=== PATIENT | male | born 2000 | race African-American/Black ===

== ENCOUNTER → 2022-11-06 13:05 | Outpatient (REF) | payer MEDICAID, SELFPAY ==
--- NOTE | 2022-11-06 13:11 | CA_ITS ---
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 Normal LV ejection fraction 55-60% with reduced global longitudinal strain 2. Mildly reduced RV systolic function 3. Mild to moderate aortic regurgitation and moderate aortic stenosis with functionally bicuspid aortic valve 4. Normal RV systolic pressure 5. No gross pericardial effusion 6. Descending thoracic aorta was not well visualized on this study Findings Left Ventricle Normal left ventricular size, thickness, and systolic function. The visually estimated ejection fraction is between 55-60%. Spectral Doppler is indicative of a normal filling pattern. prominent accessory papillary muscle with false tendon noted. Peak GLS is -14.2%, which is reduced. Right Ventricle Normal right ventricular cavity size. There is mildly decreased right ventricular systolic function. Atria Both atria are normal in size. There is no evidence of interatrial shunt. Aortic Valve There is moderate aortic valve stenosis. The peak aortic gradient is 28 mmHg.The mean gradient is 16 mmHg. There is mild to moderate aortic valve regurgitation. The raphe between right coronary and noncoronary cusp appears to be fused, functionally bicuspid valve Mitral Valve Normal mitral valve structure and function. There is trace mitral valve regurgitation. There is no mitral valve stenosis. Pulmonic Valve The pulmonic valve is likely normal. There is mild pulmonic valve regurgitation. Tricuspid Valve Normal tricuspid valve structure. There is mild tricuspid valve regurgitation. The right ventricular systolic pressure is normal. The right ventricular systolic pressure is 17 mmHg. Normal right atrial pressure. There is no evidence of pulmonary hypertension. Great Vessels The pulmonary artery was not well visualized. The asc aorta is normal in size. descending thoracic aorta is not well visualized. consider either chest CTA or thoracic MRA to evaluate the arch and the descending thoracic aorta Venous The inferior vena cava was not well visualized. Pericardium/Pleural There is no evidence of pericardial effusion. Prior Study Comparison No prior study available for comparison. Measurements 2D Linear Measurements IVSd: 0.89 0.6-0.9/0.6-1.0 cm LVIDd: 4.75 3.9-5.3/4.2-5.9 cm LVIDd Index: 2.29 2.4-3.2/2.2-3.1 cm/m2 LVIDs: 2.90 2.0-3.6 cm LVPWd: 0.90 0.7-1.1 cm LA Diam: 3.10 2.7-3.8/3.0-4.0 cm LAIDs Index: 1.50 1.5-2.3 cm/m2 LV Mass: 179.32 67-162/88-224 g LV Mass Index: 86.63 43-95/49-115 g/m2 LVOT Diam: 1.80 3.0+(-)1.3 cm 2D Systolic Function EF 4C: 59.60 >55% EF 2C: 56.30 >55% EF BiP: 57.40 >55% Mitral Valve MV Pk E: 1.44 MV PK A: 0.96 MV Decel Time: 382.00 E/A: 1.50 E'Lateral: 8.16 E'Medial: 6.74 E/E' Med: 21.40 E/E' Lat: 17.60 PHT: 112.00 MVA PHT: 1.96 Decel Edmunds: 3.76 Aortic Valve AoV Pk Baltazar: 2.64 AoV Mn Baltazar: 1.89 AoV VTI: 0.66 AoV Pk Grad: 28.00 Aov Mn Grad: 16.00 MAE Cont.VTI: 1.08 AI Pk Baltazar: 4.54 AI Edmunds: 2.89 LVOT LVOT Pk Baltazar: 1.16 LVOT Mn Baltazar: 0.93 LVOT VTI: 0.28 LVOT Pk Grad: 5.00 LVOT Mn Grad: 4.00 LVOT Diam: 1.80 LVOT Area: 2.54 Diastolic Function MV Pk E: 1.44 MV Pk A: 0.96 E/A: 1.50 E'Medial: 6.74 E/E' Med: 21.40 E' Laterial: 8.16 E/E' Lat: 17.60 Tricuspid Valve TR Pk Baltazar: 1.89 TR Pk Grad: 14.00 RA Press: 3.00 RVSP: 17.00 Great Vessels Aorta Sinus of Valsalva: 2.60 2.0-3.5 cm Ao Asc: 2.70 2.1-3.4 cm Pulmonary Valve PV Pk Baltazar: 1.51 Peak PV Grad: 9.00 Updated in Other Vendor System with Status of Final Louie Serrano MD electronically signed on 11/06/2022 3:18:08 PM with status of Final
== END ==
LOC: HO.CARD 13:05
PROVIDERS: PCP Internal Medicine; Visit Provider Internal Medicine
DX: Q25.1 Coarctation of aorta (principal); Q23.1 Congenital insufficiency of aortic valve; Z87.74 Personal history of (corrected) congenital malformations of heart and circulatory system
CPT/HCPCS: 93306; 93356

== ENCOUNTER 2023-03-31 15:31 | Outpatient (REF) | payer MEDICAID, SELFPAY ==
[2023-03-31 16:15] LABS: MANUAL DIFF FLAG NO
[2023-03-31 16:54] LABS: Basophils Percent Auto 0.7 % (0-2); Eosinophils Absolute Auto 0.4 X10*3/uL (0.0-0.4); Eosinophils Percent Auto 8.7 % (0-4); Hematocrit 49.9 % (42.0-52.0); Hemoglobin 16.1 g/dl (14.0-18.0); Imm Gran Abs Auto 0.01 X10*3/uL (0.00-0.03); Imm Gran Pct Auto 0.2 % (0.0-0.4); Lymphocytes Absolute Auto 0.5 X10*3/uL (1.2-4.9); Lymphocytes Percent Auto 11.1 % (20-40); Mean Corpuscular HGB Conc 32.3 g/dl (31.0-36.0); Mean Corpuscular Hemoglobin 25.5 pg (27.0-33.0); Mean Corpuscular Volume 79.1 fL (80.0-98.0); Mean Platelet Volume 11.1 fL (9.4-12.4); Monocytes Absolute Auto 0.3 X10*3/uL (0.1-1.2); Monocytes Percent Auto 6.8 % (2-11); Neutrophils Absolute Auto 3.3 x10*3/uL (2.0-8.3); Neutrophils Percent Auto 72.5 % (45-73); Platelet Count 255 X10*3/uL (160-400); Red Blood Count 6.31 X10*6/uL (4.60-5.80); Red Cell Distribution Width 13.2 % (11.0-16.0); White Blood Count 4.6 X10*3/uL (4.8-10.8)
[2023-03-31 17:01] LABS: Alanine Aminotransferase 16 U/L (0-40); Albumin Level 3.4 g/dL (3.5-5.0); Alkaline Phosphatase 57 U/L (39-117); Anion Gap 8 (12-20); Aspartate Amino Transferase 25 U/L (5-37); Bilirubin Total 0.4 mg/dL (0.0-1.0); Blood Urea Nitrogen 9 mg/dL (9-16); Carbon Dioxide 28 mmol/L (22-29); Chloride 109 mmol/L (96-108); Estimated Glomerular Filt Rate > 60; Glucose Random 120 mg/dL (60-115); Potassium 4.1 mmol/L (3.3-5.1); Sodium 141 mmol/L (135-145); Total Protein 5.3 g/dL (6.5-8.0)
[2023-04-06 13:13] LABS: NT-proBNP <36 pg/mL (<125)
== END 2023-03-31 15:32 | disposition home or self-care (01) ==
LOC: HO.HHCL 15:31
PROVIDERS: Visit Provider Pediatrics
DX: R06.9 Unspecified abnormalities of breathing (principal)
CPT/HCPCS: 36415; 80053; 83880; 85025

== ENCOUNTER 2023-05-29 18:18 | Outpatient (REF) | payer MEDICAID, SELFPAY ==
[2023-05-29 19:03] LABS: Influenza A PCR NEGATIVE (Negative); Influenza B PCR NEGATIVE (Negative); Resp Syncy Virus RNA Qual PCR NEGATIVE (Negative); SARS COV2 PCR INHOUSE NEGATIVE (Negative)
== END 2023-05-29 18:19 | disposition home or self-care (01) ==
LOC: HO.HHCLNP 18:18
PROVIDERS: Visit Provider Registered Nurse
DX: Z11.52 Encounter for screening for COVID-19 (principal); J06.9 Acute upper respiratory infection, unspecified
CPT/HCPCS: 0241U

== ENCOUNTER 2023-10-09 12:15 | Outpatient (REF) | payer MEDICAID, SELFPAY ==
--- NOTE | ~2023-10-09 | XR_ITS ---
EXAMINATION: XR CHEST CLINICAL INFORMATION: Shortness of breath, fever and asthma COMPARISON: 09/29/2018 TECHNIQUE: 2 views of the chest were obtained. FINDINGS: No significant abnormality is noted involving the heart, lungs, mediastinum, bony thorax or soft tissues. XR/XR chest 2V IMPRESSION: Unremarkable examination with no interval change.
== END 2023-10-09 12:16 | disposition home or self-care (01) ==
LOC: HO.HHCX 12:15
PROVIDERS: Visit Provider General Practice
DX: R06.02 Shortness of breath (principal)
CPT/HCPCS: 71046

== ENCOUNTER 2023-10-30 21:44 | Emergency (ER) | payer MEDICAID, SELFPAY ==
--- NOTE | ~2023-10-30 | XR_ITS ---
EXAMINATION: XR CHEST CLINICAL INFORMATION: Shortness of breath. COMPARISON: Chest radiograph 10/09/2023. TECHNIQUE: 2 views of the chest were obtained. FINDINGS: Stable appearance of the cardiomediastinal silhouette with redemonstration of midline sternotomy wires. No focal airspace opacities, pleural effusion or pneumothorax. No acute osseous findings. XR/XR chest 2V IMPRESSION: No acute cardiopulmonary findings.
[2023-10-30 21:46] VITALS: BP 150/69; PULSE 61; RESP 18; TEMP 36.6; O2SAT 99; BMI 21.2
[2023-10-30 22:21] LABS: COVID-19 Test Negative (Negative); IDNOW Serial# 6674DD1D
[2023-10-30 23:09] LABS: IDNOW Serial# 58CA691E; Influenza A Negative (Negative); Influenza B2 Negative (Negative)
--- NOTE | 2023-10-30 23:41 | ED_ITS ---
HPI - SOB/Dyspnea General Chief Complaint: Dyspnea Stated Complaint: Difficulty breathing Time Seen by Provider: 10/30/23 23:39 Source: patient Mode of arrival: ambulatory Limitations: no limitations History of Present Illness HPI Narrative: Patient history of asthma been having right side of with cough using nebulizing treatment at home use inhaler prior to arrival saturating 99% at room air pain increases on deep inspiration no fever no chills Related Data Previous Rx's Medication Instructions Recorded benzonatate 200 mg capsule 200 mg PO TID PRN cough #30 caps 10/31/23 ibuprofen 600 mg tablet 600 mg PO Q6H PRN fever or pain 10/31/23 #30 tabs prednisone 20 mg tablet 40 mg (2 x 20 mg) PO DAILY #10 tabs 10/31/23 Allergies Allergy/AdvReac Type Severity Reaction Status Date / Time SEASONAL ALLERGIES Allergy Intermediate RUNNY NOSE Uncoded 04/19/20 17:02 DUST Allergy Mild SNEEZING Uncoded 04/19/20 17:02 Review of Systems Review of Systems: Yes all other systems are reviewed and are negative [facility] Social History Social History Smoked in Last 30 Days: No Use of substances other than those prescribed or required for medical reasons: No Advance Directives: No Advance Directives Information Provided: Yes Physical Exam Vital Signs: Vital Signs: Last Vital Signs Temp 98.9 F 10/31/23 00:31 Pulse 52 10/31/23 00:31 Resp 16 10/31/23 00:31 BP 125/51 L 10/31/23 00:31 Pulse Ox 99 10/31/23 00:31 O2 Del Method Room Air 10/31/23 00:31 BMI result Body Mass Index 21.2 Appearance: Alert. Oriented X3. No acute distress. Eyes: No pallor or icterus ENT: Pharynx normal. Oral Mucosa moist Neck: Normal inspection. Neck supple. CVS: Normal heart rate and rhythm. Pulses normal. Respiratory: No respiratory distress. Equal air entry bilateral, no wheezing/rales/rhonchi Abdomen: Soft and nontender. Bowel sounds are present, Skin: Skin warm and dry. Normal skin color. Normal skin turgor. Extremities: No lower extremity edema. No calf tenderness Neuro: Oriented X 3. Medications Administered Discontinued Medications Generic Name Dose Route Start Last Admin Trade Name Freq PRN Reason Stop Dose Admin Benzonatate 200 mg 10/30/23 23:53 10/31/23 00:26 Benzonatate 100 Mg Capsule PO 10/30/23 23:54 200 mg ONCE ONE Administration Ibuprofen 600 mg 10/30/23 23:53 10/31/23 00:26 Ibuprofen 600 Mg Tablet PO 10/30/23 23:54 600 mg ONCE ONE Administration Prednisone 40 mg 10/30/23 23:53 10/31/23 00:26 Prednisone 20 Mg Tablet PO 10/30/23 23:54 40 mg ONCE ONE Administration Medical Decision Making Medical Decision Making [facility] Narrative: Patient with clinically pleurisy with asthma give a course of prednisone advised to take ibuprofen chest x-ray negative for any infiltrate patient is low risk for PE Differential Diagnosis Differential Diagnoses: The differential diagnosis associated with the presentation includes Pleurisy/asthma/pneumonia Lab Data [facility] Lab Attestation statement: I reviewed the patient's lab results. Labs: Lab Results 10/30/23 10/30/23 Range/Units 21:54 21:57 COVID-19 (REGLA) Negative (Negative) COVID-19 Clin Com See Note Influenza Type A (DAGOBERTO) Negative (Negative) Influenza Type B (DAGOBERTO) Negative (Negative) Influenza A & B Note See Note Independent Interpretation I performed an independent interpretation of an: Plain X-Ray Radiology Impression Discussion of test interpretation with radiology: I have reviewed the radiologist's reading. Discharge Plan Discharge Clinical Impression: Asthma with exacerbation, Pleurisy Patient Disposition: Home, Self-Care Instructions: Asthma (ED), Pleurisy (ED) Additional Instructions: Continue your inhaler/nebulizing treatment Prednisone as prescribed Cough drops and ibuprofen Follow with PCP if any concerns Prescriptions: New benzonatate 200 mg capsule 200 mg PO TID PRN (Reason: cough) Qty: 30 0RF prednisone 20 mg tablet 40 mg PO DAILY Qty: 10 0RF ibuprofen 600 mg tablet 600 mg PO Q6H PRN (Reason: fever or pain) Qty: 30 0RF Stand Alone Forms: Work/School Release Interventions: ED Discharge Assessment Last Done: 10/31/23 00:31 Discharge Date/Time: 10/31/23 00:38 Print Language: [place]
[2023-10-31 00:26] VITALS: BP 125/51; PULSE 52; RESP 16; TEMP 37.2; O2SAT 99
[2023-10-31] MEDS: Benzonatate 100 MG CAPSULE 200 MG PO (00:26)
[2023-10-31] MEDS: Ibuprofen 600 MG TABLET PO (00:26)
[2023-10-31] MEDS: predniSONE 20 MG TABLET 40 MG PO (00:26)
[2023-10-31 00:31] VITALS: BP 125/51; PULSE 52; RESP 16; TEMP 37.2; O2SAT 99
== END 2023-10-31 00:38 | disposition home or self-care (01) ==
PROVIDERS: Emergency Provider Internal Medicine; PCP Nurse Practitioner Primary Care
DX: J45.901 Unspecified asthma with (acute) exacerbation (principal); R09.1 Pleurisy; R05.9 Cough, unspecified
CPT/HCPCS: 71046; 87502; 87635; 99283; 99284

== ENCOUNTER 2024-02-10 14:36 | Outpatient (REF) | payer MEDICAID, SELFPAY ==
[2024-02-10 16:32] LABS: Anion Gap 11 (12-20); Blood Urea Nitrogen 8 mg/dL (9-16); Calcium 8.4 mg/dL (8.4-10.2); Carbon Dioxide 28 mmol/L (22-29); Chloride 106 mmol/L (96-108); Estimated Glomerular Filt Rate > 60; Glucose Random 64 mg/dL (60-115); Potassium 4.2 mmol/L (3.3-5.1); Sodium 141 mmol/L (135-145)
== END 2024-02-10 14:37 | disposition home or self-care (01) ==
LOC: HO.HHCL 14:36
PROVIDERS: Visit Provider Student in an Organized Health Care Education/Training Program
DX: R60.9 Edema, unspecified (principal)
CPT/HCPCS: 36415; 80048

== ENCOUNTER 2024-02-26 12:58 | Emergency (ER) | payer MEDICAID, SELFPAY ==
--- NOTE | ~2024-02-26 | US_ITS ---
EXAMINATION: US VENOUS ULTRASOUND WITH DOPPLER LOWER EXTREMITY, BILATERAL CLINICAL INFORMATION: Swelling COMPARISON: None available. TECHNIQUE: Ultrasound of the deep veins is performed from the hip to the calf with compression sonography and color and pulse Doppler assessment. Spectral analysis with color-flow imaging is performed. FINDINGS: RIGHT: There is normal venous compression and respiratory variation and augmented flow. The visualized common femoral vein, superficial femoral vein, profunda femoral vein, popliteal vein, and the trifurcation region shows no evidence of deep venous thrombosis. There is no significant popliteal fossa cyst. LEFT: There is normal venous compression and respiratory variation and augmented flow. The visualized common femoral vein, superficial femoral vein, profunda femoral vein, popliteal vein, and the trifurcation region shows no evidence of deep venous thrombosis. There is no significant popliteal fossa cyst. If the patient's symptoms persist, followup ultrasound in 5 days 7 days might be of value to exclude proximal propagation from a non-visualized calf vein. US/US venous duplex LE BI IMPRESSION: No DVT demonstrated in the bilateral lower extremity.
--- NOTE | ~2024-02-26 | XR_ITS ---
EXAMINATION: XR CHEST CLINICAL INFORMATION: Chest pain. COMPARISON: 10/30/2023 TECHNIQUE: 2 views of the chest were obtained. FINDINGS: The lungs are well expanded. No focal consolidation. No pleural effusion. Cardiac silhouette is unchanged. Median sternal wires. XR/XR chest 2V IMPRESSION: No acute abnormality.
[2024-02-26 13:25] VITALS: BP 146/76; PULSE 81; RESP 19; TEMP 37; O2SAT 97; BMI 19.8
--- NOTE | 2024-02-26 13:27 | ED.GENADULT ---
HPI - General Adult General Chief complaint: General Medical Stated complaint: sent by pcp for vitals? Time Seen by Provider: 02/26/24 14:50 Source: patient and old records reviewed Mode of arrival: ambulatory Limitations: no limitations History of Present Illness ED Provider: BABAR SCHMIDT narrative: 23 yo male hx of bicuspic aortic valve s/p surgery when he was a child he states he isn't sure about what was done and that he had a sternotomy. He follows with Dr. White last ECHO 11/2022 EF 55-60% he notes one + month of some dyspnea, no orthopnea, his leg swelling while on HCTZ is improving. He has no fevers, cough, nightsweats. He just has a chronic knot feeling on lower sternum. 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 MD complaint: leg swelling Onset (ago): month(s) Location: left, right and lower extremity Radiation: non-radiation Severity: mild Relieving factors: none Exacerbating factors: none Associated symptoms: chest pain and shortness of breath Treatments prior to arrival: none Related Data Previous Rx's ?Medication ?Instructions ?Recorded benzonatate 200 mg capsule 200 mg PO TID PRN cough #30 caps 10/31/23 ibuprofen 600 mg tablet 600 mg PO Q6H PRN fever or pain 10/31/23 #30 tabs prednisone 20 mg tablet 40 mg (2 x 20 mg) PO DAILY #10 tabs 10/31/23 Allergies Allergy/AdvReac Type Severity Reaction Status Date / Time SEASONAL ALLERGIES Allergy Intermediate RUNNY NOSE Uncoded 02/26/24 13:30 DUST Allergy Mild SNEEZING Uncoded 02/26/24 13:30 Review of Systems Review of Systems: Constitutional : No Fever, No Chills ENT/Mouth : No sore throat, No Rhinorrhea, No Swallowing Difficulty Eyes: No Eye Pain, No Swelling, No Redness Cardiovascular : pos Chest Pain, positive SOB, No Orthopnea, positive Edema Respiratory : No Cough, No Sputum, No Wheezing, positive dyspnea Gastrointestinal : No Nausea, No Vomiting, No Diarrhea, No abdominal Pain, No Hematochezia, No Melena Genitourinary : No Dysuria, No Urinary Frequency, No Hematuria Musculoskeletal : No joint pain, No Myalgias Skin : No Skin Lesions, No rash Neuro : No Weakness, No Numbness, No Dizziness, No Headache Psych : No Anxiety/Panic, No Depression All other systems reviewed and are negative [facility] Past Medical History Attestation statement: The following information was validated with the patient. Source: old records reviewed Medical History Bicuspid aortic valve Social History Social History Smoked in Last 30 Days: No Use of substances other than those prescribed or required for medical reasons: No Advance Directives: No Advance Directives Information Provided: No Do you have a plan to hurt others: No Plan Physical Exam ED Vital Signs: Vital Signs - 24 hr 02/26/24 13:25 02/26/24 14:54 Temperature 98.6 F 98 F Pulse Rate 81 61 Respiratory Rate 19 18 Blood Pressure 146/76 H 133/50 L Pulse Oximetry 97 99 Oxygen Delivery Method Room Air Room Air BMI result Body Mass Index 19.8 Appearance: Alert. Oriented X3. No acute distress. Eyes: Pupils equal, round and reactive to light. ENT: Pharynx normal. Neck: Normal inspection. Neck supple. CVS: Normal heart rate and rhythm. Pulses normal. Respiratory: No respiratory distress. Breath sounds normal. Abdomen: Soft and nontender. Skin: Skin warm and dry. Normal skin color. Normal skin turgor. Extremities: 1+ bilateral pitting lower extremity edema. Neuro: Oriented X 3. No motor deficit. No sensory deficit. Course Course Course Narrative: This is a Rapid Medical Examination (RME) performed by Silvio Phillips PA-C in triage. Full HPI, ROS, assessment and treatment plan per primary provider in the Main ED. 23 yo male hx of bicuspid aortic valve surgery at [id number] here for eval of bilateral lower extremity swelling x1 year, worsening 2-3 months ago. Has been following with PCP for this with unremarkable w/u. Was started on HCTZ and low-salt diet 1 month ago. Since this time reports weakness, shortness of breath on exertion along with chest pain. 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 They are unable to see him before then. +1+ pitting edema to RLE. rrr. lugngs are CTA b/l. Plan: labs, trop, bnp, ekg, cxr ordered Reevaluation(s) Reevaluation #1: signed out to Dr. Paz pending US Procedures Procedure Narrative Procedure Narrative: bedside ECHO limited parasternal subxiphoid and apical no effusion noted Medical Decision Making Medical Decision Making [facility] Narrative: 23 yo male with bicuspic aortic valve and surgery as a child has sternotomy scar is not sure of what procedure who presents with c/o leg swelling that is improving and what sounds like months of chronic chest pain and dyspnea on and off. He notes his leg swelling is improving. He thinks his symptoms are related to asthma. 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 At this time he states he feels fine has no infectious symptoms or night sweats will need basic labs, EKG, DVT studies, US for pericardial effusion. No clinical signs of endocarditis. Differential Diagnosis Differential Diagnoses: The differential diagnosis associated with the presentation includes CHF, DVT, anemia Admission/Observation Consideration of admission/observation: Escalation of care including admission/observation considered no hypoxia, neg trop, PERC negative after negative US no anemia CXR negative no pericardial effusion should be able to go home Lab Data [facility] Lab Attestation statement: I reviewed the patient's lab results. 02/26/24 13:52 02/26/24 13:52 Labs: Lab Results 02/26/24 02/26/24 Range/Units 13:52 14:53 WBC 4.6 L (4.8-10.8) X10*3/uL RBC 6.12 H (4.60-5.80) X10*6/uL Hgb 15.8 (14.0-18.0) g/dl Hct 46.8 (42.0-52.0) % MCV 76.5 L (80.0-98.0) fL MCH 25.8 L (27.0-33.0) pg MCHC 33.8 (31.0-36.0) g/dl RDW 12.6 (11.0-16.0) % Plt Count 246 (160-400) X10*3/uL MPV 10.3 (9.4-12.4) fL Immature Gran % (Auto) 0.2 (0.0-0.4) % Neut % (Auto) 75.0 H (45-73) % Lymph % (Auto) 10.2 L (20-40) % Cole % (Auto) 7.8 (2-11) % Eos % (Auto) 6.1 H (0-4) % Baso % (Auto) 0.7 (0-2) % Lymph # (Auto) 0.5 L (1.2-4.9) X10*3/uL Cole # (Auto) 0.4 (0.1-1.2) X10*3/uL Eos # (Auto) 0.3 (0.0-0.4) X10*3/uL Baso # (Auto) 0.0 (0.0-0.2) X10*3/uL Abs Immat Gran (auto) 0.01 (0.00-0.03) X10*3/uL Absolute Neuts (auto) 3.5 (2.0-8.3) x10*3/uL Absolute Nucleated RBC 0.000 (0.0-0.012) X10*3/uL Nucleated RBC % (auto) 0.0 (0.0-0.2) /100WBC PT 12.3 (11.1-13.3) SEC INR 1.0 (0.9-1.1) Sodium 143 (135-145) mmol/L Potassium 4.5 (3.3-5.1) mmol/L Chloride 107 (96-108) mmol/L Carbon Dioxide 29 (22-29) mmol/L Anion Gap 12 (12-20) BUN 14 (9-16) mg/dL Creatinine 0.93 (0.5-1.4) mg/dL Estim Creat Clear Calc 127.6 Estimated GFR > 60 Random Glucose 101 (60-115) mg/dL Calcium 9.2 D (8.4-10.2) mg/dL Magnesium 1.8 (1.6-2.6) mg/dL Total Bilirubin 0.5 (0.0-1.0) mg/dL AST 20 (5-37) U/L ALT 16 (0-40) U/L Alkaline Phosphatase 52 (39-117) U/L Troponin I High Sens 4.5 (<3.5-35.0) ng/L B-Natriuretic Peptide 17 (<100) pg/mL Total Protein 5.4 L (6.5-8.0) g/dL Albumin 3.4 L (3.5-5.0) g/dL Urine Color Yellow Urine Appearance Clear Urine pH 7.0 (5.0-9.0) Ur Specific Loop 1.025 (1.005-1.025) Urine Protein Negative (Neg-Trace) mg/dL Urine Glucose (UA) Negative (Negative) mg/dL Urine Ketones Negative (Negative) mg/dL Urine Blood Negative (Negative) Urine Nitrite Negative (Negative) Ur Leukocyte Esterase Negative (Negative) Urine RBC 0-2 (0-2) /HPF Urine WBC 0-5 (0-5) /HPF Ur Squamous Epith Cells 0-2 (0-2) /HPF Urine Bacteria None Seen (None Seen) Hyaline Casts 0-2 (0-2) /LPF Independent Interpretation I performed an independent interpretation of an: EKG and Plain X-Ray (normal ) Interpretation: Rate: 70 Rhythm: NSR [place]: normal Normal P waves. Normal OSCAR. Normal QRS complex. ST T wave : inverted t waves V3, V4, no MELONIE, tall t waves V1-V2 qTC: 367 prior studies: no change from priors The study has been interpreted contemporaneously by me. . Radiology Impression Discussion of test interpretation with radiology: I have reviewed the radiologist's reading. External Record Review External record reviewed: Inpatient record and Prior outpatient radiology Discharge Plan Discharge Clinical Impression: Leg swelling, Chronic dyspnea Patient Disposition: Home, Self-Care Instructions: Dyspnea (ED), Leg Edema (ED) Additional Instructions: chest xray normal CHF and heart attack tests normal no anemia bedside ultrasound shows no fluid around the heart. continue your medications return for fevers, increased weakness, pain, fainting or any other concerns. continue to follow with your beehive kil[employer] charcoal burner Prescriptions: No Action benzonatate 200 mg capsule 200 mg PO TID PRN (Reason: cough) Qty: 30 0RF prednisone 20 mg tablet 40 mg PO DAILY Qty: 10 0RF ibuprofen 600 mg tablet 600 mg PO Q6H PRN (Reason: fever or pain) Qty: 30 0RF Stand Alone Forms: Work/School Release Print Language: [place]an
--- NOTE | 2024-02-26 13:30 | ECG_ITS ---
Test Reason : cp Blood Pressure : / mmHG Vent. Rate : 070 BPM Atrial Rate : 070 BPM P-R Int : 130 ms QRS Dur : 096 ms QT Int : 340 ms P-R-T Axes : 056 040 049 degrees QTc Int : 367 ms Normal sinus rhythm T wave abnormality, consider anterior ischemia Abnormal ECG When compared with ECG of 01-JUL-2019 07:50, No significant change was found Referred By: Sandra Phillips Electronically Signed By:ANA M SHERIDAN
[2024-02-26 13:57] LABS: MANUAL DIFF FLAG NO
[2024-02-26 14:00] LABS: Basophils Percent Auto 0.7 % (0-2); Eosinophils Absolute Auto 0.3 X10*3/uL (0.0-0.4); Eosinophils Percent Auto 6.1 % (0-4); Hematocrit 46.8 % (42.0-52.0); Hemoglobin 15.8 g/dl (14.0-18.0); Imm Gran Abs Auto 0.01 X10*3/uL (0.00-0.03); Imm Gran Pct Auto 0.2 % (0.0-0.4); Lymphocytes Absolute Auto 0.5 X10*3/uL (1.2-4.9); Lymphocytes Percent Auto 10.2 % (20-40); Mean Corpuscular HGB Conc 33.8 g/dl (31.0-36.0); Mean Corpuscular Hemoglobin 25.8 pg (27.0-33.0); Mean Corpuscular Volume 76.5 fL (80.0-98.0); Mean Platelet Volume 10.3 fL (9.4-12.4); Monocytes Absolute Auto 0.4 X10*3/uL (0.1-1.2); Monocytes Percent Auto 7.8 % (2-11); Neutrophils Absolute Auto 3.5 x10*3/uL (2.0-8.3); Platelet Count 246 X10*3/uL (160-400); Red Blood Count 6.12 X10*6/uL (4.60-5.80); Red Cell Distribution Width 12.6 % (11.0-16.0); White Blood Count 4.6 X10*3/uL (4.8-10.8)
[2024-02-26 14:21] LABS: Prothrombin Time 12.3 SEC (11.1-13.3)
[2024-02-26 14:22] LABS: Alanine Aminotransferase 16 U/L (0-40); Albumin Level 3.4 g/dL (3.5-5.0); Alkaline Phosphatase 52 U/L (39-117); Anion Gap 12 (12-20); Aspartate Amino Transferase 20 U/L (5-37); Bilirubin Total 0.5 mg/dL (0.0-1.0); Blood Urea Nitrogen 14 mg/dL (9-16); Calcium 9.2 mg/dL (8.4-10.2); Carbon Dioxide 29 mmol/L (22-29); Chloride 107 mmol/L (96-108); Creatinine Clr Calc Pharmacy 127.6; Estimated Glomerular Filt Rate > 60; Glucose Random 101 mg/dL (60-115); Magnesium 1.8 mg/dL (1.6-2.6); Potassium 4.5 mmol/L (3.3-5.1); Sodium 143 mmol/L (135-145); Total Protein 5.4 g/dL (6.5-8.0)
[2024-02-26 14:24] LABS: Troponin-I High Sensitivity 4.5 ng/L (<3.5-35.0)
[2024-02-26 14:25] LABS: B Type Natriuretic Peptide 17 pg/mL (<100)
[2024-02-26 14:54] VITALS: BP 133/50; PULSE 61; RESP 18; TEMP 36.6; O2SAT 99
[2024-02-26 15:08] LABS: Appearance Urine Clear; Color Urine Yellow; Glucose Urine UA Negative (Negative); Leukocyte Esterase Urine Negative (Negative); Nitrite Urine Negative (Negative); Specific Gravity - Urine 1.025 (1.005-1.025); Urine Blood Negative (Negative); Urine Ketones Negative (Negative); Urine Protein Negative (Neg-Trace)
[2024-02-26 15:13] LABS: Bacteria Urine None Seen (None Seen); Hyaline Casts Urine 0-2 /LPF (0-2); RBC Urine 0-2 /HPF (0-2); Squamous Epithelial Cell Urine 0-2 /HPF (0-2); WBC Urine 0-5 /HPF (0-5)
--- NOTE | 2024-02-26 16:33 | PC.NURSE ---
ultrasound being completed at this time.
[2024-02-26 17:02] VITALS: BP 125/41; PULSE 51; RESP 18; TEMP 36.6; O2SAT 99
--- NOTE | 2024-02-26 17:02 | PC.NURSE ---
vss and up to date. nsr on the satellite project site monitor. pt verbalizing pain level subsided at this time w/o interventions. pt currently waiting for ultrasound results at this time. plan of care ongoing. call gallegos placed within reach.
[2024-02-26 18:30] VITALS: BP 121/50; PULSE 64; RESP 18; O2SAT 98
[2024-02-26 20:05] VITALS: BP 121/50; PULSE 64; RESP 18; TEMP 36.6; O2SAT 98
== END 2024-02-26 20:11 | disposition home or self-care (01) ==
PROVIDERS: Emergency Medicine; Physician Assistant Medical; Emergency Provider Internal Medicine; PCP Nurse Practitioner Primary Care
DX: R60.0 Localized edema (principal); R07.9 Chest pain, unspecified; R06.02 Shortness of breath; Z79.899 Other long term (current) drug therapy
CPT/HCPCS: 36415; 71046; 80053; 81001; 83735; 83880; 84484; 85025; 85610; 93005; 93970; 99284

== ENCOUNTER → 2024-02-26 13:30 | Outpatient (BNV) | payer MEDICAID, SELFPAY | PROVIDERS: Emergency Provider Emergency Medicine; PCP Nurse Practitioner Primary Care; Visit Provider Internal Medicine | DX: R07.9 Chest pain, unspecified (principal); R94.31 Abnormal electrocardiogram [ECG] [EKG] | CPT/HCPCS: 93010 ==

== ENCOUNTER 2024-07-04 16:15 | Outpatient (REF) | payer MEDICAID, SELFPAY ==
[2024-07-04 17:55] LABS: Appearance Urine Clear; Color Urine Yellow; Glucose Urine UA Negative (Negative); Leukocyte Esterase Urine Negative (Negative); Nitrite Urine Negative (Negative); Specific Gravity - Urine >= 1.030 (1.005-1.025); Urine Blood Negative (Negative); Urine Ketones Negative (Negative); Urine Protein Negative (Neg-Trace)
== END 2024-07-04 16:16 | disposition home or self-care (01) ==
LOC: HO.HHCL 16:15
PROVIDERS: Visit Provider Pediatrics
DX: E88.09 Other disorders of plasma-protein metabolism, not elsewhere classified (principal)
CPT/HCPCS: 81003

== ENCOUNTER 2024-07-06 17:36 | Outpatient (REF) | payer MEDICAID, SELFPAY ==
[2024-07-06 18:14] LABS: Creatinine, 24Hr Urine 1.1 G/Day (1.0-2.0); Creatinine, mg/dL 155.95; Protein 24 Hr Urine < 49 mg/Day (<150); Protein mg/dL < 7 mg/dL; Total Volume 24 Hour Urine 700 mL
== END 2024-07-06 17:37 | disposition home or self-care (01) ==
LOC: HO.LNP 17:36
PROVIDERS: Visit Provider Pediatrics
DX: E88.09 Other disorders of plasma-protein metabolism, not elsewhere classified (principal)
CPT/HCPCS: 84156

== ENCOUNTER 2024-08-29 16:09 | Outpatient (REF) | payer MEDICAID, SELFPAY ==
[2024-08-29 18:02] LABS: Fibrinogen 360 MG/DL (259-690)
[2024-08-29 18:12] LABS: Alanine Aminotransferase 23 U/L (0-40); Albumin Level 3.2 g/dL (3.5-5.0); Alkaline Phosphatase 49 U/L (39-117); Aspartate Amino Transferase 33 U/L (5-37); Bilirubin Direct < 0.2 mg/dL (0.0-0.5); Bilirubin Total 0.2 mg/dL (0.0-1.0); Cholesterol 151 mg/dL (<200); HDL Cholesterol 35 mg/dL (>40); Iron 115 mcg/dL (45-160); LDL Cholesterol Calculated 100 mg/dL (<100); Percent Iron Saturation 37 % (15-50); Total Iron Binding Capacity 311 mcg/dL (228-428); Total Protein 5.3 g/dL (6.5-8.0); Triglycerides 80 mg/dL (<150); Unsaturated Iron Binding 196 ug/dL
[2024-08-29 18:29] LABS: Vitamin D 25-OH Total 12.1 ng/mL (>30)
--- OUTSIDE RECORDS SUMMARY | 2024-08-29 19:48 | XMS_ITS | Clinical Summary ---
Author Organization [employer] Address [address] [facility] [address] [place] [address] Care Team Providers Care Pattern Technician Name Role Phone Connie Storm BENITO Primary Care Provider [phone] Allergies No known active allergies Medications aspirin-acetamin ophen-caffeine (Excedrin Migraine) 250-250-65 MG tabletIndication s:Migraine without aura and without status migrainosus, not intractable Take 1 tablet by mouth every 6 (six) hours if needed for headaches for up to 30 doses. 30 tablet 3 Active albuterol (ProAir HFA) 108 (90 Base) MCG/ACT inhaler as needed 8 Active ibuprofen 600 MG tabletIndication s:Viral upper respiratory illness Take 1 tablet (600 mg) by mouth every 8 (eight) hours if needed for mild pain. 30 tablet 3 Active acetaminophen (Tylenol Extra Strength) 500 MG tabletIndication s:Viral upper respiratory illness Take 2 tablets (1,000 mg) by mouth every 6 (six) hours if needed for mild pain. 30 tablet 3 Active Blood Pressure kit 1 each 2 times daily. 1 kit 4 02/25/20 25 Active hydroCHLOROthiaz mya (HYDRODiuril) 25 MG tabletIndication s:Pedal edema Take 0.5 tablets (12.5 mg) by mouth Once per day. 45 tablet 1 4 09/14/19 25 Active Active Problems Problem Noted Date Diagnosed Date Keratoconus of both eyes 11/19/2023 Assessment & Plan (11/19/2023 1:37 PM EDT): Pt is expected to have recurrent vision abnormality that may affect the ability to transfer/driving. I told him it is not safe to either drive or perform activities that require vigilance when these episodes happen. Out of work letter for the two days he missed at work was given today Needs to fu w/ at [facility] optometry clinic in [place] for surgery in 2 months S/p aortic valvuloplasty 10/09/2023 Aortic valve regurgitation 10/09/2023 Need for prophylactic antibiotic 09/02/2023 Overview (09/02/2023): Per cards, needs 2G amox 30-60 min b/f dental or oral procedure Pedal edema 01/22/2023 Overview (01/22/2023): Images from the original note were not included. From [facility] note 01/05/2023 Premature ventricular contractions 10/30/2022 History of aortic coarctation repair 10/28/2022 Migraine without aura and wi thout status migrainosus, not intractable 10/28/2022 Assessment & Plan (10/28/2022 5:20 PM EDT): Refer to optometry for further eval, may /not need carotid US if all negative. Start Excedrin migraine 12 tabs po q6h prn migraine/at onset. FU w new PCP for further fu Fatigue 12/23/2017 Moderate persistent asthma 09/30/201705/29 Assessment & Plan (10/11/2023 4:59 PM EDT): Wheezing and SOB following febrile illness, likely asthma exacerbation with some interaction of stress, environmental exposure, and cardiac history - CXR neg for PNA - prednsione 40mg x 5 days - Albuterol 4 puffs every 4-6 hours - ER followup/rtc if not feeling better in terms of breathing after 2-3 days or acutely worsens Bicuspid aortic valve 05/02/2013 Assessment & Plan (10/28/2022 5:18 PM EDT): Congential, previously fu by child cardiology Refer to cardiology for further eval and fu w PCP Coarctation of aorta 05/02/2013 Congenital heart disease 05/02/2013 Overview (01/22/2023): Images from the original note were not included. Congenital mitral stenosis 05/02/2013 Aortic valve stenosis 05/02/2013 Immunizations Name Administration Dates Next Due DTaP, 5 pertussis antigens 10/26/2006,,2002,09/05,2002 HPV 9-Valent 09/30/2017 Hep A, ped/adol, 2 dose 09/30/2017 Hep B, Adolescent or Pediatric 2002,2001,2002 Hib (HbOC) 09/07/2003, 3,2002,07/04 IPV 10/26/2006, 3,2002,07/04 Influenza injectable quadriv alent preservative free 06/10/2021,08/09/2020,08/26/2017,08/22 Influenza, IIV3, injectable 06/04/2011, 9 Influenza, Split (incl. james fied surface antigen) 06/08/2013 MMR 10/26/2006,04/24/2003 Meningococcal MCV4P [id number]-135 11/11/2013 Pneumococcal Conjugate PCV 7 09/07/2003,07/04/20 02 Tdap 11/11/2013 Varicella 10/26/2006,04/24/2003 Social History Tobacco Use Types Packs/Day Years Used Date Smoking Tobacco: Never Smokeless Tobacco: Never Sex and Gender Information Value Date Recorded Sex Assigned at Male 06/02/2022 10:18 AM EDT Legal Sex Male 10:18 AM EDT Gender Identity Male 06/02/2022 10:18 AM EDT Sexual Orientation Straight 06/02/2022 10 :18 AM EDT Last Filed Vital Signs Vital Sign Reading Time Taken Comments Blood Pressure 148/71 02/25/2024 4:02 PM EDT Pulse 78 02/25/2024 4:02 PM EDT Temperature 36.2 ??C (97.1 ??F) 02/25/2024 4:02 PM ED T Respiratory Rate 17 02/25/2024 4:02 PM EDT Oxygen Saturation 96% 02/25/2024 4:02 PM EDT Inhaled Oxygen Concentration - - Weight 71.9 kg (158 lb 9.6 oz) 02/25/2024 4:02 P M EDT Height 190.5 cm (6' 3 ) 11/19/2023 12:04 PM EDT Body Mass Index 19.82 11/19/2023 12:04 PM EDT Plan of Treatment Health Maintenance Due Date Last Done Comments Depression Screening 2002 SDOH Screening 2002 Pneumococcal Vaccine: Pediatrics (0 to 5 Years) and At-Risk Patients (6 to 64 Years) (1 of 2 - PCV) 2008 09/07/2003, 2002 Alcohol/Substance Use Screening 2014 Family Planning (PISQ) 2017 HPV Vaccines (2 - Male 3-dose series) 10/28/2017 09/30/2017 Hepatitis A Vaccines (2 of 2 - 2-dose series) 03/30/2018 09/30/2017 Chlamydia and Gonorrhea Screening 05/23/2023 05/23/2022 DTaP/Tdap/Td Vaccines (7 - Td or Tdap) 11/12/2023 11/11/2013, 10/26/2006, 12/12/2003, Additional history exists COVID-19 Vaccine (4 - season) 2024 03/18/2022, 01/23/2021, 12/26/2020 Influenza Vaccine (#1) 2024 , 08/09/2020, 08/26/2017, Additional history exists Tobacco Screening 02/24/2025 02/25/2024 Zoster Vaccines (1 of 2) 2052 RSV Patients and Patients Aged 60 years or older (1 - 1-dose 75+ series) 2077 Hepatitis B Vaccines Completed 2002, 2002, 2002 HIB Vaccines Completed 09/07/2003, 11/01, 2002, Additional history exists IPV Vaccines Completed 10/26/2006, 11/01, 2002, Additional history exists Meningococcal Vaccine Aged Out 11/11/2013 No demetrius tori eligible based on patient's age to complete this topic HIV Screening Completed 05/23/2022 Hepatitis C Screening Completed 05/23/2022 RSV under 20 months Aged Out No longe r eligible based on patient's age to complete this topic Rotavirus Vaccines Aged Out No longer eligible based on patient's age to complete this topic Procedures Procedure Name Priority Date/Time Associated Diagnosis Comments ZZZ HISTORICAL CHLAMYDIA/N. GONORRHOEAE RNA, TMA, UROGENITAL Routine 05/23/2022 10:11 AM EDT ZZZ HISTORICAL HEPATITIS C AB W/REFL TO HCV RNA, QN, PCR Routine 05/23/2022 9:26 AM EDT HIV 1/2 ANTIGEN/ANTIBODY, FOURTH GENERATION W/RFL Routine 05/23/2022 9:26 AM EDT from Last 3 Months or Most Recently Relevant to Health Maintenance Results * CHLAMYDIA/N. GONORRHOEAE RNA, TMA, UROGENITAL (05/23/2022 10:11 AM EDT) Chlamydia trachomatis RNA, TMA, Urogenital NOT DETECTED NOT DETECTED CONVERTED LEGACY LABS COMMENT SEE COMMENT CONVERTE D LEGACY LABS Comment: The analytical performance characteristics of this assay, when used to test SurePath(TM) specimens have been determined by [employer]. The modifications have not been cleared or approved by the FDA. This assay has been validated pursuant to the CLIA regulations and is used for clinical purposes. ?? For additional information, please refer to https://education.[employer]/faq/UCD660 (This link is being provided for information/ educational purposes only.) ?? Neisseria gonorrhoeae RNA, TMA, Urogenital NOT DETECTED NOT DETECTED CONVERTED LEGACY LABS 05/23/2022 10:1 1 AM EDT Ian Bahena MD HISTORICAL/NON ORDERABLE LABS Fi nal Result CONVERTED LEGACY LABS * HEPATITIS C AB W/REFL TO HCV RNA, QN, PCR (05/23/2022 9:26 AM EDT) HEPATITIS C ANTIBODY NON-REACTI VE NON-REACT DHARMESH CONVERTED LEGACY LABS INDEX 0.05 <1.00 CONVERTED LEGACY LABS Comment: ?? HCV antibody was non-reactive. There is no laboratory ?? evidence of HCV infection. ?? In most cases, no further action is required. However, if recent HCV exposure is suspected, a test for HCV RNA (test code 65539) is suggested. ?? For additional information please refer to http://[employer]/faq/GLI24r8 (This link is being provided for informational/ educational purposes only.) ?? 05/23/2022 9:26 AM EDT us Ian Bahena MD HISTORICAL/NON ORDERABLE LABS Fi nal Result CONVERTED LEGACY LABS * HIV 1/2 ANTIGEN/ANTIBODY,FOURTH GENERATION W/RFL (05/23/2022 9:26 AM EDT) HIV-1/2 ANTIGEN AND ANTIBODIES, 4TH GENERATION W/ REFLEX NON-REACT DHARMESH NON-REACT DHARMESH CONVERTED LEGACY LABS Comment: HIV-1 antigen and HIV-1/HIV-2 antibodies were not detected. There is no laboratory evidence of HIV infection. ?? PLEASE NOTE: This information has been disclosed to you from records whose confidentiality may be protected by state law. ??If your state requires such protection, then the state law prohibits you from making any further disclosure of the information without the specific written consent of the person to whom it pertains, or as otherwise permitted by law. A general authorization for the release of medical or other information is NOT sufficient for this purpose. ? For additional information please refer to http://[employer]/faq/BRQ003 (This link is being provided for informational/ educational purposes only.) ? The performance of this assay has not been clinically validated in patients less than 2 years old. ?? 05/23/2022 9:26 AM EDT us Ian Bahena MD LAB BLOOD ORDERABLES Final Resul t CONVERTED LEGACY LABS from Last 3 Months or Most Recently Relevant to Health Maintenance Insurance [employer] Care Teams Pattern Technician Relationship Specialty Start Date End Date Connie Storm ANP [address] [place], [place] PCP - General Family Medicine 01/07/22
--- OUTSIDE RECORDS SUMMARY | 2024-08-29 19:48 | XMS_ITS | Encounter Summary ---
Author Organization [facility] [facility] Address [address] [place] [address] 7[address] [place] [address] Care Team Providers Care Diabetes Physician Name Role Phone Connie Storm Primary Care Provider [phone] Reason for Visit * Reason Onset Date Comments Letter for School/Work 02/25/2024 Encounter Details Date Type Department Care Team ([facility] st Contact Info) Description 02/25/[address] [facility] [address] [place] [address] Conine Storm ANP [address] [place] [address] Letter for School/Work Social History Tobacco Use Types Packs/Day Years Used Date Smoking Tobacco: Never Smokeless Tobacco: Never Sex and Gender Information Value Date Recorded Sex Assigned at Male 06/02/2022 10:18 AM EDT Legal Sex Male 10:18 AM EDT Gender Identity Male 06/02/2022 10:18 AM EDT Sexual Orientation Straight 06/02/2022 10 :18 AM EDT documented as of this encounter Miscellaneous Notes * Telephone Encounter - Flaco Patiño - 02/25/2024 10:30 AM EDT Tc from pt requesting an excuse letter for work, states they were seen on 02/10/24 and still is experiencing swelling and missed work. Please contact at [phone] documented in this encounter Plan of Treatment Not on file documented as of this encounter Visit Diagnoses Not on filedocumented in this encounter Care Teams Diabetes Physician Relationship Specialty Start Date End Date Connie Storm ANP [address] [place] [address] PCP - General Family Medicine 01/07/22 documented as of this encounter
[2024-08-30 07:09] LABS: Ceruloplasmin 16 mg/dL (14-30)
[2024-08-30 08:28] LABS: Immunoglobulin A 81 mg/dL (47-310); Immunoglobulin G 489 mg/dL (600-1640); Immunoglobulin M 65 mg/dL (50-300)
== END 2024-08-29 16:10 | disposition home or self-care (01) ==
LOC: HO.HHCL 16:09
PROVIDERS: Visit Provider Pediatrics
DX: E88.09 Other disorders of plasma-protein metabolism, not elsewhere classified (principal)
CPT/HCPCS: 36415; 80061; 80076; 82306; 82390; 82784; 83540; 85384

== ENCOUNTER 2024-10-13 10:04 | Outpatient (REF) | payer MEDICAID, SELFPAY ==
--- OUTSIDE RECORDS SUMMARY | 2024-10-13 12:28 | XMS_ITS | Encounter Summary ---
Author Organization [employer] Address [address] [facility] 7t [place] [address] Care Team Providers Care Quebracho Tanner Name Role Phone Connie Storm BENITO Primary Care Provider [phone] Reason for Visit * Reason Comments sick visit Encounter Details Date Type Department Care Team (Late st Contact Info) Description 09/21/2024 5:20 PM EST Office Visit [facility] [address] [place] [address] Lucie Thomas MD [address] [place] [address] Influenza A (Primary Dx) Social History Tobacco Use Types Packs/Day Years Used Date Smoking Tobacco: Never Smokeless Tobacco: Never Sex and Gender Information Value Date Recorded Sex Assigned at Male 06/02/2022 10:18 AM EDT Legal Sex Male 10:18 AM EDT Gender Identity Male 06/02/2022 10:18 AM EDT Sexual Orientation Straight 06/02/2022 10 :18 AM EDT documented as of this encounter Last Filed Vital Signs Vital Sign Reading Time Taken Comments Blood Pressure 146/83 09/21/2024 5:41 PM EST Pulse 102 09/21/2024 5:41 PM EST Temperature 39.1 ??C (102.4 ??F) 09/21/2024 5:[address] Respiratory Rate 20 09/21/2024 5:41 PM EST Oxygen Saturation 98% 09/21/2024 5:41 PM EST Inhaled Oxygen Concentration - - Weight 75.3 kg (166 lb) 09/21/2024 5:41 PM EST Height 190.5 cm (6' 3 ) 09/21/2024 5:41 PM EST Body Mass Index 20.75 09/21/2024 5:41 PM EST documented in this encounter Progress Notes * Lucie Thomsa MD - 09/21/2024 5:20 PM EST SUBJECTIVE: Kwame Breaux is a 24 y.o. year old male who presents for [facility]/sore throat . Denies recent illness, injury, or hospitalization. Acute Concerns: Patient here for evaluation of nasal congestion, sore throat, fever, chills, body aches, headache and general weakness x 24 hours. He has mild dry cough and pleuritic chest pain, no shortness of breath. He has been using Tylenol and ibuprofen as needed for fever and bodyaches with no improvement ofsymptoms. 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 He lives with his father Social History Social History Narrative Not on file Patient Active Problem List Diagnosis Bicuspid aortic valve Coarctation of aorta History of aortic coarctation repair Migraine without aura and without status migrainosus, not intractable Congenital heart disease Pedal edema Moderate persistent asthma Need for prophylactic antibiotic S/p aortic valvuloplasty Aortic valve regurgitation Premature ventricular contractions Fatigue Congenital mitral stenosis Aortic valve stenosis Keratoconus of both eyes Influenza A No family history on file. Review of Systems Constitutional: Positive for chills, fatigue and fever. HENT: Positive for congestion and sore throat. Negative for ear pain and rhinorrhea. Eyes: Negative for pain and discharge. Respiratory: Positive for cough. Negative for shortness of breath. Cardiovascular: Negative for chest pain. Gastrointestinal: Negative for abdominal pain, constipation, diarrhea and nausea. Endocrine: Negative for polydipsia. Genitourinary: Negative for dysuria and frequency. Musculoskeletal: Negative for arthralgias, back pain and neck pain. Neurological: Negative for dizziness, numbness and headaches. Psychiatric/Behavioral: Negative for agitation. OBJECTIVE: Vitals: 09/21/24 1741 BP: (!) 146/83 Pulse: 102 Resp: 20 Temp: (!) 102.4 ??F (39.1 ??C) SpO2: 98% Physical Exam Constitutional: Appearance: Normal appearance. HENT: Right Ear: Tympanic membrane and ear canal normal. Left Ear: Tympanic membrane and ear canal normal. Nose: Mucosal edema and rhinorrhea present. Rhinorrhea is clear. Right Turbinates: Swollen. Left Turbinates: Swollen. Mouth/Throat: Mouth: Mucous membranes are moist. Pharynx: Pharyngeal swelling present. No oropharyngeal exudate or posterior oropharyngeal erythema. Eyes: Pupils: Pupils are equal, round, and reactive to light. Cardiovascular: Rate and Rhythm: Normal rate and regular rhythm. Heart sounds: No murmur heard. Pulmonary: Breath sounds: Normal breath sounds. No wheezing. Abdominal: General: Bowel sounds are normal. Palpations: Abdomen is soft. Tenderness: There is no abdominal tenderness. Musculoskeletal: General: No tenderness. Normal range of motion. Cervical back: Normal range of motion. No tenderness. Skin: General: Skin is warm. Neurological: General: No focal deficit present. Mental Status: He is alert and oriented to person, place, and time. Psychiatric: Mood and Affect: Mood normal. Office Visit on 09/21/2024 Component Date Value Ref Range Status Rapid COVID Ag 09/21/2024 Negative Final Influenza B 09/21/2024 Negative Negative, Indeterminate Final Influenza A 09/21/2024 Positive (A) Negative, Indeterminate Final Rapid Strep A Screen 09/21/2024 Negative Negative, None Detected Final Problem List Items Addressed This Visit Influenza A - Primary Tamiflu x 5d, start tonight Rest (sleep at least 8 hours a night). Out of work x 2d Hydrate with plenty of water (avoid caffeine and alcohol). Use saline nose drops to loosen mucus + Flonase Take Acetaminophen (Tylenol??)/Ibuprofen as needed to reduce fever, headache, body aches or discomfort Gargle with salt water and use throat sprays/lozenges for throat pain. Use heated, humidified air. If you do not have a humidifier, take hot showers. Cover coughs and sneezes using the crook of your elbow. If you have a fever, stay home and away from others (self isolation) until fever-free for 72 hours (temperature should be less than 100??F without medication). Relevant Orders POCT Rapid Covid-19 BinaxNOW (Completed) POCT Rapid Influenza B ROCKWELL ID NOW (Completed) POCT Rapid Influenza A ROCK[place]LL ID NOW (Completed) POCT Rapid Strep A [facility] ID NOW (Completed) Follow Up: Current Outpatient Medications on File Prior to Visit Medication Sig Dispense Refill albuterol (ProAir HFA) 108 (90 Base) MCG/ACT inhaler as needed [id number] (Excedrin Migraine) 250-250-65 MG tablet Take 1 tablet by mouth every 6 (six) hours if needed for headaches for up to 30 doses. 30 tablet 0 Blood Pressure kit 1 each 2 times daily. 1 kit 0 hydroCHLOROthiazide (HYDRODiuril) 25 MG tablet TAKE 1/2 TABLET BY MOUTH ONCE A DAY 45 tablet 1 [DISCONTINUED] acetaminophen (Tylenol Extra Strength) 500 MG tablet Take 2 tablets (1,000 mg) by mouth every 6 (six) hours if needed for mild pain. 30 tablet 0 [DISCONTINUED] ibuprofen 600 MG tablet Take 1 tablet (600 mg) by mouth every 8 (eight) hours if needed for mild pain. 30 tablet 0 No current facility-administered medications on file prior to visit. documented in this encounter Miscellaneous Notes * Assessment & Plan Note - Lucie Thomas MD - 09/21/2024 6:04 PM EST Associated Problem(s): Influenza A Tamiflu x 5d, start tonight Rest (sleep at least 8 hours a night). Out of work x 2d Hydrate with plenty of water (avoid caffeine and alcohol). Use saline nose drops to loosen mucus + Flonase Take Acetaminophen (Tylenol??)/Ibuprofen as needed to reduce fever, headache, body aches or discomfort Gargle with salt water and use throat sprays/lozenges for throat pain. Use heated, humidified air. If you do not have a humidifier, take hot showers. Cover coughs and sneezes using the crook of your elbow. If you have a fever, stay home and away from others (self isolation) until fever-free for 72 hours (temperature should be less than 100??F without medication). documented in this encounter Plan of Treatment Upcoming Encounters Date Type Department Care Team (Late st Contact Info) Description 12/15/2024 9:00 AM EDT Office Visit [facility] [address] [place] [phone] Connie Storm, ANP [address] [facility] [place] [address] documented as of this encounter Procedures Procedure Name Priority Date/Time Associated Diagnosis Comments POCT INFLUENZA B (ID NOW RAPID MOLECULAR) Routine 09/21/2024 6:05 PM EST Influenza A POCT INFLUENZA A (ID NOW RAPID MOLECULAR) Routine 09/21/2024 6:05 PM EST Influenza A POC ROCKWELL ID NOW STREP A Routine 09/21/2024 6:05 PM EST Influenza A POCT RAPID COVID ANTIGEN Routine 09/21/2024 6:05 PM EST Influenza A documented in this encounter Results * POCT Rapid Strep A [facility] ID NOW (09/21/2024 6:05 PM EST) Pathologist [facility] Rapid Strep A Screen Negative Negative, None Detected Swab 09/21/2024 6:05 PM EST Lucie Thomas MD POINT OF CARE TEST ENTER /EDIT ORDERABLES Final Result * (ABNORMAL) POCT Rapid Influenza A ROCK[place]LL ID NOW (09/21/2024 6:05 PM EST) Pathologist [facility] Influenza A Positive( A) Negative, Indeterminate [facility] Swab 09/21/2024 6:05 PM EST us Lucie Thomas MD POINT OF CARE TEST ENTER /EDIT ORDERABLES Final Result [facility] [address] [place] [phone] * POCT Rapid Influenza B [place] ID NOW (09/21/2024 6:05 PM EST) [facility] Influenza B Negative Negative, Indeterminate [facility] Swab 09/21/2024 6:05 PM EST us Lucie Thomas MD POINT OF CARE TEST ENTER /EDIT ORDERABLES Final Result Performing Organization Address City/[facility]/ZIP Co de Phone Number [facility] [address] [place] [address] [phone] * POCT Rapid Covid-19 BinaxNOW (09/21/2024 6:05 PM EST) Rapid COVID Ag Negative [facility] Swab 09/21/2024 6:05 PM EST us Lucie Thomas MD POINT OF CARE TEST ENTER /EDIT ORDERABLES Final Result Performing Organization Address [facility] Co de Phone Number [facility] [address] [place] [address] [phone] documented in this encounter Visit Diagnoses Diagnosis Influenza A- Primary Influenza with other respiratory manifestations documented in this encounter Care Teams Quebracho Tanner Relationship Specialty Start Date End Date Connie Storm ANP [address] [place] [phone] PCP - General Family Medicine 01/07/22 documented as of this encounter
--- OUTSIDE RECORDS SUMMARY | 2024-10-13 12:28 | XMS_ITS | Encounter Summary ---
Author Organization [employer] Address [address] [facility] [address]t [place] [address] Care Team Providers Care Tower Erector Helper Name Role Phone Connie Storm Primary Care Provider [phone] Reason for Visit * Reason Onset Date Comments Nurse Triage 09/29/2024 Encounter Details Date Type Department Care Team (Late st Contact Info) Description 09/29/2024 Telephone [facility] MEDICINE [address] [place] [address] Connie Storm ANP [address] [place] [address] Nurse Triage Social History Tobacco Use Types Packs/Day Years Used Date Smoking Tobacco: Never Smokeless Tobacco: Never Sex and Gender Information Value Date Recorded Sex Assigned at Male 06/02/2022 10:18 AM EDT Legal Sex Male 10:18 AM EDT Gender Identity Male 06/02/2022 10:18 AM EDT Sexual Orientation Straight 06/02/2022 10 :18 AM EDT documented as of this encounter Miscellaneous Notes * Telephone Encounter - Brianda Brown RN - 09/29/2024 2:57 PM EST called pt to triage, spoke to pt. pt states had the flu last week and has been recovering. pt states in the last few days, pt states increasing chest tightness and cough, with intermittent wheezing and sob. pt using his inhaler as needed but it does not always help that much. advised of proper use of inhaler and how often to use. pt denies fever, severe or sustained sob, vomiting, or other associated symptoms. advised no available appt to schedule at this time and advised walk in center. given location, hours, and wait times cautions. advised home care: rest, fluids, steam, humidifier, warm saltwater gargles, lozenges, OTC pain or fever reliever as needed, and call back if worsening or new c oncerns. pt understands and agrees with plan. insurance verified. Protocol Used: Cough (Adult) Protocol-Based Disposition: See in Office or Video Visit Today or Tomorrow Video visit offer not recorded Positive Triage Questions: * Continuous (nonstop) coughing interferes with work or school and no improvement using cough treatment per Care Advice * Patient wants to be seen * All higher-acuity triage questions were negative Care Advice Discussed: * Reassurance and Education - Cough * Cough Medicines * Cough Syrup With Dextromethorphan * Coughing Spells * Prevent Dehydration * Avoid Tobacco Smoke * Humidifier * Fever Medicines * Reasons To Call Back - Difficulty breathing - Cough lasts more than 3 weeks - Fever lasts more than 3 days - You become worse * Telephone Encounter - Stefany Mobley - 09/29/2024 2:32 PM EST Symptoms: Breathing Trouble, Cough Outcome: Schedule an urgent appointment (within 1 hour) or talk to a nurse or provider soon Reason: Caller denied all higher acuity questions The caller accepted this outcome [phone] documented in this encounter Plan of Treatment Upcoming Encounters Date Type Department Care Team (Late st Contact Info) Description 12/15/2024 9:00 AM EDT Office Visit [facility] MEDICINE [address] [place] [address] Connie Storm ANP [address] [place] [address] documented as of this encounter Visit Diagnoses Not on filedocumented in this encounter Care Teams Tower Erector Helper Relationship Specialty Start Date End Date Connie Storm ANP [address] [place] [address] PCP - General Family Medicine 01/07/22 documented as of this encounter
--- OUTSIDE RECORDS SUMMARY | 2024-10-13 12:28 | XMS_ITS | Encounter Summary ---
Author Organization [employer] Address [address] [facility] [address] [place] [address] Care Team Providers Care Airfreight Operations Agent Name Role Phone Connie Storm Primary Care Provider [phone] Reason for Visit * Reason Onset Date Comments appt f/u 09/21/2024 Tried the number s not working ,did get a hold of dad told him to try let nieves to call the office to book a f/u appt asthma ,was going to offer 11/15/24 at 11am //or 11/15/24 at 1:15 .dad stated he will relay the message. Encounter Details Date Type Department Care Team (Late st Contact Info) Description 09/21/2024 Telephone [facility] MEDICINE [address] [place], [place] [phone] Connie Storm ANP [address] [place] [address] appt f/u (Tried the numbers not working ,did get a hold of dad told him to try let ineves to call the office to book a f/u appt asthma ,was going to offer 11/15/24 at 11am //or 11/15/24 at 1:15 .dad stated he will relay the message.) Social History Tobacco Use Types Packs/Day Years Used Date Smoking Tobacco: Never Smokeless Tobacco: Never Sex and Gender Information Value Date Recorded Sex Assigned at Male 06/02/2022 10:18 AM EDT Legal Sex Male 10:18 AM EDT Gender Identity Male 06/02/2022 10:18 AM EDT Sexual Orientation Straight 06/02/2022 10 :18 AM EDT documented as of this encounter Miscellaneous Notes * Telephone Encounter - Stefany Mobley - 10/11/2024 2:23 PM EDT Pt scheduled for 12/15 9:00am. * Telephone Encounter - Yojana Zelaya MA - 10/03/2024 9:23 AM EST Tried the numbers not working ,did get a hold of dad told him to try let nieves to call the office to book a f/u appt asthma ,was going to offer 11/15/24 at 11am //or 11/15/24 at 1:15 .dad stated he will relay the message. * Telephone Encounter - Marci Bolanos RN - 09/21/2024 2:23 PM EST Triage call Pt reports fever, Pt doesn't have thermometer close by can't tell abstract writer what fever was. Other symptoms are sore throat, headache , nasal congestion, dry cough, Neg for diarrhea, vomiting, nausea. Neg home Covid test Pt doesn't have a second home test handy. Symptoms began yesterday 09/20/24. Pt is encouraged to drink warm liquids, 6-8 glasses of liquids daily. Pt reports hx of asthma and has been having difficulty breathing but, mainly because of nasal congestion and has to breath through mouth. Pt has taken 500mg tylenol with good effect for discomfort. Pt will need an excuse forabsence. Pt is advised to come to [facility] today to be seen by provider. Pt agrees with disposition. Insurance is verified as active . Protocol Used: Cough (Adult) Protocol-Based Disposition: See in Office or Video Visit Today or Tomorrow Video visit not offered Positive Triage Questions: * Continuous (nonstop) coughing interferes with work or school and no improvement using cough treatment per Care Advice * Patient wants to be seen * All higher-acuity triage questions were negative Care Advice Discussed: * Reassurance and Education - Cough * Cough Medicines * Coughing Spells * Prevent Dehydration * Fever Medicines * Reasons To Call Back - Difficulty breathing - Cough lasts more than 3 weeks - Fever lasts more than 3 days - You become worse * For a Runny Nose - Blow Your Nose * Telephone Encounter - Stefany Whitmanracquel Mobley - 09/21/2024 1:53 PM EST Symptoms: Sore Throat, Headache, Abdominal Pain - Male, Runny Nose Outcome: Schedule an urgent appointment (within 4 hours) or talk to a nurse or provider soon Reason: Getting worse The caller accepted this outcome. [phone] documented in this encounter Plan of Treatment Upcoming Encounters Date Type Department Care Team (Late st Contact Info) Description 12/15/2024 9:00 AM EDT Office Visit [facility] [address] [place] [address] Connie Storm ANP [address] [place] [address] documented as of this encounter Visit Diagnoses Not on filedocumented in this encounter Care Teams Airfreight Operations Agent Relationship Specialty Start Date End Date Connie Storm ANP [address] [place] [address] PCP - General Family Medicine 01/07/22 documented as of this encounter
--- OUTSIDE RECORDS SUMMARY | 2024-10-13 12:28 | XMS_ITS | Clinical Summary ---
Author Organization [employer] Address [address] [facility] 7t [place] [address] Care Team Providers Care Facility Operations Manager Name Role Phone Connie Storm BENITO Primary Care Provider [phone] Allergies No known active allergies Medications aspirin-acetamin ophen-caffeine (Excedrin Migraine) 250-250-65 MG tabletIndication s:Migraine without aura and without status migrainosus, not intractable Take 1 tablet by mouth every 6 (six) hours if needed for headaches for up to 30 doses. 30 tablet 10/29/19 23 Active albuterol (ProAir HFA) 108 (90 Base) MCG/ACT inhaler as needed 12/25/19 18 Active Blood Pressure kit 1 each 2 times daily. 1 kit 02/25/20 24 025 Active hydroCHLOROthiaz mya (HYDRODiuril) 25 MG tabletIndication s:Pedal edema TAKE 1/2 TABLET BY MOUTH ONCE A DAY 45 tablet 1 09/12/19 25 Active acetaminophen (Tylenol Extra Strength) 500 MG tablet Take 1 tablet (500 mg) by mouth every 8 (eight) hours if needed for mild pain. 90 tablet 09/21/19 25 025 Active ibuprofen 600 MG tablet Take 1 tablet (600 mg) by mouth every 8 (eight) hours if needed for mild pain or moderate pain. 60 tablet 09/21/19 25 025 Active fluticasone (Flonase) 50 MCG/ACT nasal spray Administer 1 spray into each nostril Once per day. 16 g 2 09/21/19 25 025 Active budesonide-formo terol (Symbicort) 80-4.5 MCG/ACT inhalerIndicatio ns:Moderate persistent asthma with acute exacerbation Inhale 2 puffs in the morning and at bedtime. Rinse mouth with water after use to reduce aftertaste and incidence of candidiasis. Do not swallow. 1 each 1 09/30/19 25 026 Active ibuprofen 600 MG tabletIndication s:Viral upper respiratory illness Take 1 tablet (600 mg) by mouth every 8 (eight) hours if needed for mild pain. 30 tablet 05/29/20 23 025 Discontinued acetaminophen (Tylenol Extra Strength) 500 MG tabletIndication s:Viral upper respiratory illness Take 2 tablets (1,000 mg) by mouth every 6 (six) hours if needed for mild pain. 30 tablet 05/29/20 025 Discontinued oseltamivir (Tamiflu) 75 MG capsule Take 1 capsule (75 mg) by mouth 2 times daily for 5 days. 10 capsule 09/21/19 025 Active Problems Problem Noted Date Diagnosed Date Influenza A 09/21/2024 Assessment & Plan (09/21/2024 6:04 PM EST): Tamiflu x 5d, start tonight Rest (sleep [...] should be less than 100??F without medication). Keratoconus of both eyes 11/19/2023 Assessment & [...] given today Needs to fu w/ at [facility] optometry clinic in [place] for surgery in 2 months S/p aortic valvuloplasty 10/09/2023 Aortic valve regurgitation 10/09/2023 Need for prophylactic antibiotic 09/02/2023 Overview (09/02/2023): Per cards, needs 2G amox 30-60 min b/f dental or oral procedure Pedal edema 01/22/2023 Overview (01/22/2023): Images from the original note were not included. From [employer] Dr. White's note 01/05/2023 Premature ventricular contractions [...] mitral stenosis 05/02/2013 Aortic valve stenosis 05/02/2013 Encounters Date Type Department Care Team Description 09/30/2024 2:00 PM EST [facility] [address] [address] Joan Wood NP Moderate persistent asthma with acute exacerbation (Primary Dx); Murmur, cardiac 09/29/2024 Telephone [facility] MEDICINE [address] [place] [phone] Connie Storm ANP Nurse Triage 09/21/2024 5:20 PM EST Office Visit [facility] [address] [address] Lucie Thomas MD Influenza A (Primary Dx) 09/21/2024 Orders Only [facility] MEDICINE [address] [place] [phone] Lucie Thomas MD 09/21/[address] [address] Connie Storm ANP appt f/u (Tried the numbers not working ,did get a hold of dad told him to try let nieves to call the office to book a f/u appt asthma ,was going to offer 11/15/24 at 11am //or 11/15/24 at 1:15 .dad stated he will relay the message.) 09/10/2024 Refill [facility] MEDICINE [address] [place] [phone] Connie Storm ANP Pedal edema from Last 3 Months Immunizations Name Administration Dates Next Due DTaP, 5 pertussis antigens 10/26/2006,,2002,09/05,2002 HPV 9-Valent 09/30/2017 Hep A, ped/adol, 2 dose 09/30/2017 Hep B, Adolescent or Pediatric 2002,2001,2002 Hib (HbOC) 09/07/2003, 3,2002,07/04 IPV 10/26/2006,200 3,2002,07/04 Influenza injectable quadriv alent preservative free [...] Sign Reading Time Taken Comments Blood Pressure 130/69 09/30/2024 2:20 PM EST Pulse 57 09/30/2024 2:20 PM EST Temperature 35.8 ??C (96.5 ??F) 09/30/2024 2:20 PM ES T Respiratory Rate 14 09/30/2024 2:20 PM EST Oxygen Saturation 99% 09/30/2024 2:20 PM EST Inhaled Oxygen Concentration - - Weight 72.6 kg (160 lb) 09/30/2024 2:20 PM EST Height 190.5 cm (6' 3 ) 09/30/2024 2:20 PM EST Body Mass Index 20 09/30/2024 2:20 PM EST Plan of Treatment Upcoming Encounters Date Type Department Care Team (Late st Contact Info) Description 12/15/2024 9:00 AM EDT Office Visit [facility] MEDICINE [address] [place], [place] [phone] Connie Storm ANP [address] [place], [place] [phone] Health Maintenance Due Date Last Done Comments Depression Screening 2002 SDOH Screening 2002 Alcohol/Substance Use Screening 2014 Family Planning (PISQ) 2017 HPV Vaccines (2 - Male 3-dose series) 10/28/2017 09/30/2017 Hepatitis A Vaccines (2 of 2 - 2-dose series) 03/30/2018 09/30/2017 Pneumococcal Vaccine: Pediatrics (0 to 5 Years) and At-Risk Patients (6 to 49) Years) (1 of 2 - PCV) 2021 09/07/2003, 2002 Chlamydia and Gonorrhea Screening 05/23/2023 05/23/2022 DTaP/Tdap/Td Vaccines (7 - Td or Tdap) 11/12/2023 11/11/2013, 10/26/2006, 12/12/2003, Additional history exists COVID-19 Vaccine ( season) 2024 03/18/2022, 01/23/2021, 12/26/2020 Tobacco Screening 02/24/2025 02/25/2024 Zoster Vaccines (1 [...] Completed 05/23/2022 Hepatitis C Screening Completed 05/23/2022 Influenza Vaccine Completed 2024, , 08/09/2020, Additional history exists RSV under 20 months Aged Out No longe r eligible based on patient's age to complete this topic Rotavirus Vaccines Aged Out No longer eligible based on patient's age to complete this topic Procedures Procedure Name Priority Date/Time Associated Diagnosis Comments POC ROCKWELL ID NOW STREP A Routine 09/21/2024 6:05 PM EST Influenza A POCT INFLUENZA A (ID NOW RAPID MOLECULAR) Routine 09/21/2024 6:05 PM EST Influenza A POCT INFLUENZA B (ID NOW RAPID MOLECULAR) Routine 09/21/2024 6:05 PM EST Influenza A POCT RAPID COVID ANTIGEN Routine 09/21/2024 6:05 PM EST Influenza A ZZZ HISTORICAL CHLAMYDIA/N. GONORRHOEAE RNA, TMA, UROGENITAL Routine 05/23/2022 10:11 AM EDT ZZZ HISTORICAL HEPATITIS C AB W/REFL TO HCV RNA, QN, PCR Routine 05/23/2022 9:26 AM EDT HIV 1/2 ANTIGEN/ANTIBODY, FOURTH GENERATION W/RFL Routine 05/23/2022 9:26 AM EDT from Last 3 Months or Most Recently Relevant to Health Maintenance Results * POCT Rapid Influenza B ROCK[place]LL ID NOW (09/21/2024 6:05 PM EST) Influenza B Negative Negative, Indeterminate [facility] Swab 09/21/2024 6:05 PM EST Lucie Thomas MD POINT OF CARE TEST ENTER /EDIT ORDERABLES Final Result Performing Organization Address [facility] Co de Phone Number [facility] [address] [place] [phone] * (ABNORMAL) POCT Rapid Influenza A ROCKWELL ID NOW (09/21/2024 6:05 PM EST) Influenza A Positive( A) Negative, Indeterminate [facility] Swab 09/21/2024 6:05 PM EST Lucie Thomas MD POINT OF CARE TEST ENTER /EDIT ORDERABLES Final Result Performing Organization Address [facility]/ZIP Co de Phone Number [facility] [address] [place] [phone] * POCT Rapid Strep A ROCKWELL ID NOW (09/21/2024 6:05 PM EST) Pathologist [facility] Rapid Strep A Screen Negative Negative, None Detected Swab 09/21/2024 6:05 PM EST Lucie Thomas MD POINT OF CARE TEST ENTER /EDIT ORDERABLES Final Result * POCT Rapid Covid-19 BinaxNOW (09/21/2024 6:05 PM EST) [facility] Rapid COVID Ag Negative [facility] Swab 09/21/2024 6:05 PM EST Lucie Thomas MD POINT OF CARE TEST ENTER /EDIT ORDERABLES Final Result Performing Organization Address City/[facility]/ZIP Co de Phone Number [facility] [address] [place] [phone] * CHLAMYDIA/N. GONORRHOEAE RNA, TMA, UROGENITAL (05/23/2022 10:11 AM EDT) [facility] Chlamydia trachomatis RNA, TMA, Urogenital NOT DETECTED NOT DETECTED CONVERTED LEGACY LABS COMMENT SEE COMMENT CONVERTE D LEGACY LABS Comment: The analytical performance characteristics of this assay, when used to test SurePath(TM) specimens have been determined by [employer]. The modifications have not been cleared or approved by the FDA. This assay has been validated pursuant to the CLIA regulations and is used for clinical purposes. ?? For additional information, please refer to https://education.[employer]/faq/OFD193 (This link is being provided for information/ [...] a test for HCV RNA (test code 98729) is suggested. ?? For additional information please refer to http://[employer]/faq/JDW93y7 (This link is being provided for informational/ educational purposes only.) ?? 05/23/2022 9:26 AM EDT Ian Bahena MD HISTORICAL/NON ORDERABLE [...] ? For additional information please refer to http://[employer]/faq/EBJ500 (This link is being provided for informational/ educational purposes only.) ? The performance of this assay has not been clinically validated in patients less than 2 years old. ?? 05/23/2022 9:26 AM EDT us Ian Bahena MD LAB BLOOD ORDERABLES Final Resul t CONVERTED LEGACY LABS from Last 3 Months or Most Recently Relevant to Health Maintenance Insurance [employer] Care Teams Facility Operations Manager Relationship Specialty Start Date End Date Connie Storm ANP [address] [place], [place] PCP - General Family Medicine 01/07/22
--- OUTSIDE RECORDS SUMMARY | 2024-10-13 12:28 | XMS_ITS | Encounter Summary ---
Author Organization [facility] Address [address] [place] [address] 7 [place] [address] Care Team Providers Care Cargo Station Worker Name Role Phone Connie Storm Primary Care Provider [phone] Encounter Details Date Type Department Care Team (Late st Contact Info) Description 09/21/2024 Orders Only [facility] MEDICINE [address] [place] [phone] Lucie Thomas MD [address] [place] [address] Social History Tobacco Use Types Packs/Day Years Used Date Smoking Tobacco: Never Smokeless Tobacco: Never Sex and Gender Information Value Date Recorded Sex Assigned at Male 06/02/2022 10:18 AM EDT Legal Sex Male 10:18 AM EDT Gender Identity Male 06/02/2022 10:18 AM EDT Sexual Orientation Straight 06/02/2022 10 :18 AM EDT documented as of this encounter Plan of Treatment Upcoming Encounters Date Type Department Care Team (Late st Contact Info) Description 12/15/2024 9:00 AM EDT Office Visit [facility] MEDICINE [address] [place] [phone] Connie Storm ANP [address] [place] [address] documented as of this encounter Visit Diagnoses Not on filedocumented in this encounter Care Teams Cargo Station Worker Relationship Specialty Start Date End Date Connie Storm ANP [address] [place] [phone] PCP - General Family Medicine 01/07/22 documented as of this encounter
--- OUTSIDE RECORDS SUMMARY | 2024-10-13 12:28 | XMS_ITS | Encounter Summary ---
Author Organization [employer] Address [address] [facility] 7t [place] [address] Care Team Providers Care Filter Press Operator Name Role Phone Connie Storm BENITO Primary Care Provider [phone] Reason for Visit * Reason Comments Asthma Encounter Details Date Type Department Care Team ([facility] st Contact Info) Description 09/30/2024 2:00 PM EST Office Visit [facility] [address] [place], [place] [phone] Joan Wood NP [address] [place] [address] Moderate persistent asthma with acute exacerbation (Primary Dx); Murmur, cardiac Social History Tobacco Use Types Packs/Day Years [...] Mass Index 20 09/30/2024 2:20 PM EST documented in this encounter Progress Notes * Joan Wood NP - 09/30/2024 2:00 PM EST SUBJECTIVE: Kwame Breaux is a 24 y.o. male who presents to the [facility] in [place] for a sick visit. Denies recent illness, injury, or hospitalization. HPI Kwame states he was here last week, tested positive for the flu and has been recovering well; however, he continues to struggle with shortness of breath, chest tightness, wheezing, and coughing fitsthat sometimes induce vomiting of phlegm. He states his symptoms slightly respond to albuterol inhaler. He reports nighttime awakenings with the cough. He has a history of asthma, but does not use maintenance inhaler. Denies fever, chills, URI symptoms, chest or epigastric pain, and heartburn. Review of Systems Constitutional: Negative. Negative for chills and fever. HENT: Negative. Negative for congestion and sore throat. Eyes: Negative for discharge. Respiratory: Positive for cough, chest tightness, shortness of breath and wheezing. Cardiovascular: Negative for chest pain and palpitations. Gastrointestinal: Negative. Negative for abdominal pain, constipation, diarrhea and nausea. Genitourinary: Negative. Negative for difficulty urinating. Musculoskeletal: Negative. Negative for arthralgias and myalgias. Skin: Negative for rash. Neurological: Negative. Negative for dizziness, speech difficulty, light- headedness and headaches. Hematological: Negative. Psychiatric/Behavioral: Negative for behavioral problems, self-injury and suicidal ideas. The patient is not nervous/anxious. OBJECTIVE: Visit Vitals BP 130/69 (BP Location: Left arm, Patient Position: Sitting, BP Cuff Size: Adult) Pulse 57 Temp 96.5 ??F (35.8 ??C) (Temporal) Resp 14 Ht 6' 3 (1.905 m) Wt 160 lb (72.6 kg) SpO2 99% BMI 20.00 kg/m?? Smoking Status Never BSA 1.96 m?? Patient Active Problem List Diagnosis Bicuspid aortic valve Coarctation of aorta History of aortic coarctation repair Migraine without aura and without status migrainosus, not intractable Congenital heart disease Pedal edema Moderate persistent asthma Need for prophylactic antibiotic S/p aortic valvuloplasty Aortic valve regurgitation Premature ventricular contractions Fatigue Congenital mitral stenosis Aortic valve stenosis Keratoconus of both eyes Influenza A Physical Exam Vitals and nursing note reviewed. Constitutional: General: He is not in acute distress. Appearance: Normal appearance. He is not ill-appearing. HENT: Head: Normocephalic and atraumatic. Right Ear: External ear normal. Left Ear: External ear normal. Nose: Nose normal. Eyes: General: No scleral icterus. Extraocular Movements: Extraocular movements intact. Cardiovascular: Rate and Rhythm: Normal rate and regular rhythm. Heart sounds: Murmur (2nd intercostal space right of sternal border) heard. Pulmonary: Effort: Pulmonary effort is normal. No respiratory distress. Breath sounds: Wheezing (inspiratory) present. Musculoskeletal: General: Normal range of motion. Cervical back: Normal range of motion. Skin: General: Skin is moist. Neurological: General: No focal deficit present. Mental Status: He is alert and oriented to person, place, and time. Gait: Gait normal. Psychiatric: Mood and Affect: Mood normal. Behavior: Behavior normal. Assessment/Plan Diagnoses and all orders for this visit: Moderate persistent asthma with acute exacerbation Comments: -Patient is well-appearing, no evidence of acute distress, vital signs are stable -PE not supportive of systemic steroid use, however, he may benefit from inhaled corticosteroid -Prescribed Symbicort. Patient is instructed to use the inhaler twice daily for maintenance. May use additional 8 puffs every 4 hours in between maintenance dose as rescue prn -Advised follow-up with PCP in 4 to 6 weeks -Work note provided for yesterday and today. Orders: - budesonide-formoterol (Symbicort) 80-4.5 MCG/ACT inhaler; Inhale 2 puffs in the morning and at bedtime. Rinse mouth with water after use to reduce aftertaste and incidence of candidiasis. Do not swallow. Murmur, cardiac Comments: -Patient with known aortic valve regurgitation and congenital mitral stenosis -He is not symptomatic. documented in this encounter Plan of Treatment Upcoming Encounters Date Type Department Care Team ([facility] st Contact Info) Description 12/15/2024 9:00 AM EDT Office Visit [facility] [address] [place] [address] Connie Storm ANP [address] [place] [address] documented as of this encounter Visit Diagnoses Diagnosis Moderate persistent asthma with acute exacerbation- Primary Murmur, cardiac Undiagnosed cardiac murmurs documented in this encounter Care Teams Filter Press Operator Relationship Specialty Start Date End Date Connie Storm ANP [address] [place] [address] PCP - General Family Medicine 01/07/22 documented as of this encounter
== END 2024-10-13 10:05 | disposition home or self-care (01) ==
LOC: HO.US 10:04
PROVIDERS: PCP Nurse Practitioner Primary Care; Visit Provider Pediatrics
DX: R79.89 Other specified abnormal findings of blood chemistry (principal)
CPT/HCPCS: 76700

== ENCOUNTER → 2024-10-13 10:27 | Outpatient (BNV) | payer MEDICAID, SELFPAY | PROVIDERS: PCP Nurse Practitioner Primary Care; Visit Provider Radiology Diagnostic Radiology | DX: R94.5 Abnormal results of liver function studies (principal) | CPT/HCPCS: 76700 ==

== ENCOUNTER 2024-12-21 09:45 | Outpatient (REF) | payer MEDICAID, SELFPAY ==
--- OUTSIDE RECORDS SUMMARY | 2024-12-21 11:06 | XMS_ITS | Clinical Summary ---
Author Organization [employer] Address [address] [facility] 7t [place] [address] Care Team Providers Care Shoddy Mill Worker Name Role Phone Bronwyn Child BENITO Primary Care Provider Allergies No known active allergies Medications aspirin-acetami nophen-caffeine (Excedrin Migraine) 250-250-65 MG tabletIndicatio ns:Migraine without aura and without status migrainosus, not intractable Take 1 tablet by mouth every 6 (six) hours if needed for headaches for up to 30 doses. 30 tablet 023 Active fluticasone (Flonase) 50 MCG/ACT nasal spray INSTILL 1 SPRAY INTO EACH NOSTRIL ONCE PER DAY. 48 mL 1 025 Active budesonide-form oterol (Symbicort) 80-4.5 MCG/ACT inhalerIndicati ons:Moderate persistent asthma without complication Take 1-2 puffs as needed up to every 6 hours. Rinse mouth with water after use to reduce aftertaste and incidence of candidiasis. Do not swallow. 1 each 2 025 Active Blood Pressure kitIndications: Elevated blood pressure reading in office without diagnosis of hypertension 1 each 2 times daily. 1 kit 025 2025 Active hydroCHLOROthia zide 12.5 MG tabletIndicatio ns:Bilateral lower extremity edema Take 1 tab as needed once daily 90 tablet 1 025 Active albuterol (2.5 MG/3ML) 0.083% nebulizer solutionIndicat ions:Moderate persistent asthma without complication Take 3 mL (2.5 mg) by nebulization every 6 (six) hours if needed for wheezing or shortness of breath. 75 mL 1 025 2025 Active albuterol (ProAir HFA) 108 (90 Base) MCG/ACT inhaler 018 2024 Discontinued Blood Pressure kit 1 each 2 times daily. 1 kit 024 2024 Discontinued(R eorder (will not trigger notification to Pharmacy)) hydroCHLOROthia zide (HYDRODiuril) 25 MG tabletIndicatio ns:Pedal edema TAKE 1/2 TABLET BY MOUTH ONCE A DAY 45 tablet 1 025 2024 Discontinued(D ose adjustment) fluticasone (Flonase) 50 MCG/ACT nasal spray Administer 1 spray into each nostril Once per day. 16 g 2 025 2024 Discontinued budesonide-form oterol (Symbicort) 80-4.5 MCG/ACT inhalerIndicati ons:Moderate persistent asthma with acute exacerbation Inhale 2 puffs in the morning and at bedtime. Rinse mouth with water after use to reduce aftertaste and incidence of candidiasis. Do not swallow. 1 each 1 025 2024 Discontinued(R eorder (will not trigger notification to Pharmacy)) HPV 9-valent (Gardasil-9) suspension prefilled syringe vaccine prefilled syringe Inject 0.5 mL into the muscle 1 (one) time for 1 dose. 0.5 mL 025 2024 Active Problems Problem Noted Date Diagnosed Date [...] given today Needs to fu w/ at [facility] optometry clinic in [place] for surgery in 2 months S/p aortic valvuloplasty 10/09/2023 Aortic valve regurgitation 10/09/2023 Need for prophylactic antibiotic 09/02/2023 Overview (09/02/2023): Per cards, needs 2G amox 30-60 min b/f dental or oral procedure Pedal edema 01/22/2023 Overview (01/22/2023): Images from the original note were not included. From C T Tech Dr. White's note 01/05/2023 Premature ventricular contractions [...] Encounters Date Type Department Care Team Description 12/19/2024 Telephone [facility] [address] [place] [phone] Bronwyn Child ANP Medication Question 12/15/2024 9:00 AM EDT Office Visit [address] [address] Bronwyn Child ANP Elevated blood pressure reading in office without diagnosis of hypertension (Primary Dx); Moderate persistent asthma without complication; Bilateral lower extremity edema; Aortic valve stenosis, etiology of cardiac valve disease unspecified; Congenital heart disease; Routine screening for STI (sexually transmitted infection) 12/15/2024 Telephone [facility] [address] [place] [address] Bronwyn Child ANP Durable Medical Equipment 12/15/2024 Travel 12/14/2024 Telephone [facility] [address] [place] [address] [place] CHART PREP 12/13/2024 Refill [facility] [address] [place], [place] [phone] Lucie Thomas MD 10/22/2024 Refill [facility] [address] [place] [address] Joan Wood NP Moderate persistent asthma with acute exacerbation 10/14/2024 Population Health Risk Score [facility] () Department [address] [place] [id number] Provider, Population Health Generic 09/30/2024 2:00 PM EST Office Visit [facility] [address] [place] [address] Joan Wood NP Moderate persistent asthma with acute exacerbation (Primary Dx); Murmur, cardiac 09/29/2024 Telephone [facility] [address] [place] [address] Bronwyn Child ANP Nurse Triage from Last 3 Months Immunizations Immunization Administration Dates Next Due DTaP, 5 pertussis antigens 10/26/2006,,2002,09/05,2002 HPV 9-Valent 09/30/2017 Hep A, ped/adol, 2 dose 09/30/2017 Hep B, Adolescent or Pediatric 2002,2001,2002 Hib ([facility]) 09/07/2003, 3,2002,07/04 IPV 10/26/2006, 3,2002,07/04 Influenza injectable quadriv alent preservative free 06/10/2021,08/09/2020,08/26/2017,08/22 Influenza, IIV3, injectable 06/04/2011, 9 Influenza, Injectable, MDCK, preservative free 2024 Influenza, Split (incl. james fied surface antigen) 06/08/2013 MMR 10/26/2006,04/24/2003 Meningococcal MCV4P ACYW-135 11/11/2013 Pneumococcal Conjugate PCV 7 09/07/2003,07/04/20 02 Tdap 12/15/2024,11/11/2013 Varicella 10/26/2006,04/24/2003 Social History Tobacco Use Types Packs/Day Years Used Date Smoking Tobacco: Never Smokeless Tobacco: Never Housing Stability Answer Date Recorded What is your housing situation today? I have stacie arndt 12/15/[address] you li ve. Do you have problems with any of the following? None of the above 12/15/2024 Food Insecurity Answer Date Recorded Within the past 12 months, y ou worried that your food would run out before you got money to buy more: Never True 12/15/2024 Within the past 12 months,th e food you bought just didn't last and you didn't have enough money to get more: Never True Transportation Answer Date Recorded In the past 12 months, has l ack of transportation kept you from medical appts, meetings, work or from getting things needed for daily living? No 12/15/2024 Utilities Answer Date Recorded In the past 12 months, has t he electric, gas, oil or water company threatened to shut off services in your home? No 12/15/2024 Internet Access Answer Date Recorded Internet Access Q1 Yes 12/15/2024 Internet Access Q2 Not on file 12/15/2024 Sex and Gender Information Value Date Recorded Sex Assigned at Male 06/02/2022 10:18 AM EDT Legal Sex Male 10:18 AM EDT Gender Identity Male 06/02/2022 10:18 AM EDT Sexual Orientation Straight 06/02/2022 10 :18 AM EDT Last Filed Vital Signs Vital Sign Reading Time Taken Comments Blood Pressure 130/64 12/15/2024 9:39 AM EDT Pulse 60 12/15/2024 9:08 AM EDT Temperature 35.8 ??C (96.5 ??F) 09/30/2024 2:20 PM ES T Respiratory Rate 16 12/15/2024 9:08 AM EDT Oxygen Saturation 99% 09/30/2024 2:20 PM EST Inhaled Oxygen Concentration - - Weight 75.3 kg (166 lb) 12/15/2024 9:08 AM EDT Height 187.2 cm (6' 1.72 ) 12/15/2024 9:08 AM ED T Body Mass Index 21.48 12/15/2024 9:08 AM EDT Plan of Treatment Health Maintenance Due Date Last Done Comments Depression Screening 2002 Family Planning (PISQ) 2017 HPV Vaccines (2 - Male 3-dose series) 10/28/2017 09/30/2017 Hepatitis A Vaccines (2 of 2 - 2-dose series) 03/30/2018 09/30/2017 Meningococcal B Vaccine (1 of 2 - Standard) 2018 Pneumococcal Vaccine: Pediatrics (0 to 5 Years) and At-Risk Patients (6 to 49) Years) (1 of 2 - PCV) 2021 09/07/2003, 2002 Chlamydia and Gonorrhea Screening 05/23/2023 05/23/2022 COVID-19 Vaccine ( season) 2024 03/18/2022, 01/23/2021, 12/26/2020 Alcohol/Substance Use Screening 12/15/2025 12/15/2024 Disability Screening 12/15/2025 12/15/2024 SDOH Screening 12/15/2025 12/15/2024 Tobacco Screening 12/15/2025 12/15/2024 DTaP/Tdap/Td Vaccines (8 - Td or Tdap) 12/15/2034 12/15/2024, 11/11/2013, 10/26/2006, Additional history exists Zoster Vaccines (1 of 2) 2052 RSV [...] Procedure Name Priority Date/Time Associated Diagnosis Comments US ABDOMEN COMPLETE Routine 10/13/2024 1 1:06 AM EDT ZZZ HISTORICAL CHLAMYDIA/N. GONORRHOEAE RNA, TMA, UROGENITAL Routine 05/23/2022 10:11 AM EDT ZZZ HISTORICAL HEPATITIS C AB W/REFL TO HCV RNA, QN, PCR Routine 05/23/2022 9:26 AM EDT HIV 1/2 ANTIGEN/ANTIBODY, FOURTH GENERATION W/RFL Routine 05/23/2022 9:26 AM EDT from Last 3 Months or Most Recently Relevant to Health Maintenance Results * US Abdomen Complete (10/13/2024 11:06 AM EDT) Anatomical Region Laterality Modality Abdomen Ultrasound 10/13/2024 11:0 6 AM EDT Narrative 10/17/2024 10:25 AM EDT ? [facility] ?[address] ?[place] [address] ? Ultrasound Report ? Signed ? Patient: Kwame Breaux ?MR#: [id number] ?? 92 ? : 2000 ?Acct:[id number] ? Age/Sex: 24 / M ?ADM Date: 10/13/24 ? Loc: HO.US ? Attending Dr: Brandon White MD ? Ordering Physician: Brandon White MD ?? Date of Service: 10/13/24 ?? Procedure(s): US abdomen complete ?? Accession Number(s): [id number] ? cc: BRONWYN CHILD NP; Brandon White MD ? CLINICAL HISTORY: Abnormal LFTS ? US abdomen complete with color Doppler ? Comparison: None ? Findings: ?? The visualized pancreas, aorta, and inferior vena cava are unremarkable. ? Liver normal size and echotexture. Right lobe 15.1 cm length. No focal ?? hepatic masses. ?? Common duct 5.0 mm diameter. ?? Physiologic distention of the gallbladder. No gallstones or sludge. No ?? gallbladder wall thickening. No pericholecystic fluid. No sonographic ?? Jamison sign. ?? Main portal vein antegrade. ? Right kidney normal size, 9.2 cm in length. Normal cortical width and ?? echotexture. No solid or cystic renal masses. No nephrolithiasis. No ?? hydronephrosis ?? Left kidney normal, 9.8 cm in length. Normal cortical width and ?? echotexture. No solid or cystic renal masses. No nephrolithiasis. No ?? hydronephrosis. ? Spleen measures 11.1 cm. No splenic masses. ? No ascites. No lymphadenopathy. ? Impression: ?? 1. Normal abdominal ultrasound. ? This document has been electronically signed by: Manfred Yap MD on ?? 10/13/2024 11:06:26 ? Dictated By: ?Manfred Yap MD ? Signed By: ?<Electronically signed by Manfred Yap MD in OV> ?10/17/24 1025 ? DD/ 1106 ? TD/TT: 10/13/24 1106 ? Tape Recorder Mechanic: ? Procedure Note Donotuseinterpreter, Image - 10/17/[address] [address] Ultrasound Report Signed Patient: Kwame Breaux AMR#: [id number] [birth year] : 2000Acct:[id number] Age/Sex: Date: 10/13/24 Loc: HO.US Attending Dr: Brandon White MD Ordering Physician: Brandon White MD Date of Service: 10/13/24 Procedure(s): US abdomen complete Accession Number(s): [id number] cc: BRONWYN CHILD CENTRIFUGAL MACHINE TENDER; Brandon White MD CLINICAL HISTORY: Abnormal LFTS US abdomen complete with color Doppler Comparison: None Findings: The visualized pancreas, aorta, and inferior vena cava are unremarkable. Liver normal size and echotexture. Right lobe 15.1 cm length. No focal hepatic masses. Common duct 5.0 mm diameter. Physiologic distention of the gallbladder. No gallstones or sludge. No gallbladder wall thickening. No pericholecystic fluid. No sonographic Jamison sign. Main portal vein antegrade. Right kidney normal size, 9.2 cm in length. Normal cortical width and echotexture. No solid or cystic renal masses. No nephrolithiasis. No hydronephrosis Left kidney normal, 9.8 cm in length. Normal cortical width and echotexture. No solid or cystic renal masses. No nephrolithiasis. No hydronephrosis. Spleen measures 11.1 cm. No splenic masses. No ascites. No lymphadenopathy. Impression: 1. Normal abdominal ultrasound. This document has been electronically signed by: Manfred Yap MD on 10/13/2024 11:06:26 Dictated By: Manfred Yap MD Signed By: <Electronically signed by Manfred Yap MD in OV> 10/17/24 1025 DD/ 1106 TD/TT: 10/13/24 1106 Tape Recorder Mechanic: [facility] External Provider IMG US PROCEDURES Final Result * CHLAMYDIA/N. GONORRHOEAE RNA, TMA, UROGENITAL (05/23/2022 10:11 AM EDT) Chlamydia trachomatis RNA, TMA, Urogenital NOT DETECTED NOT DETECTED CONVERTED LEGACY LABS COMMENT SEE COMMENT CONVERTE D LEGACY LABS Comment: The analytical performance characteristics of this assay, when used to test SurePath(TM) specimens have been determined by [employer]. The modifications have not been cleared or approved by the FDA. This assay has been validated pursuant to the CLIA regulations and is used for clinical purposes. ?? For additional information, please refer to https://SendMe.Wellkeeper/faq/GFK014 (This link is being provided for information/ [...] a test for HCV RNA (test code 07806) is suggested. ?? For additional information please refer to http://SendMe.Wellkeeper/faq/TJK35i4 (This link is being provided for informational/ educational purposes only.) ?? 05/23/2022 9:26 AM EDT us Ian Bahena MD HISTORICAL/NON ORDERABLE LABS Fi nal Result Performing Organization Address [facility] de Phone Number CONVERTED LEGACY LABS * HIV 1/2 ANTIGEN/ANTIBODY,FOURTH [...] ? For additional information please refer to http://education.Conferensum.Wattbot/faq/JCD518 (This link is being provided for informational/ educational purposes only.) ? The performance of this assay has not been clinically validated in patients less than 2 years old. ?? 05/23/2022 9:26 AM EDT us Ian Bahena MD LAB BLOOD ORDERABLES Final Resul t Performing Organization Address [facility] Co de Phone Number CONVERTED LEGACY LABS from Last 3 Months or Most Recently Relevant to Health Maintenance Insurance [facility] C3 Care Teams Shoddy Mill Worker Relationship Specialty Start Date End Date Bronwyn Child ANP [address] [place] [phone] PCP - General Family Medicine 01/07/22
--- OUTSIDE RECORDS SUMMARY | 2024-12-21 11:06 | XMS_ITS | Encounter Summary ---
Author Organization [employer] Address [address] [facility] 7t [place] [address] Care Team Providers Care Sizer Machine Name Role Phone Connie Storm Primary Care Provider [phone] Reason for Visit * Reason Onset Date Comments Medication Question 12/19/2024 Encounter Details Date Type Department Care Team ([facility] st Contact Info) Description 12/19/2024 Telephone [facility] [address] [place] [address] Connie Storm ANP [address] [place] [address] Medication Question Social History Tobacco Use Types Packs/Day Years [...] encounter Miscellaneous Notes * Telephone Encounter - Lien Mullins RN - 12/19/2024 12:51 PM EDT Incoming call from Sonam at [facility] pharmacy. She stated that pt reported to her that he does not have a nebulizer to go with the medication picked up today. Per chart encounter from 12/15/24, DME script was already generated for nebulizer and awaiting PCP signature. She also stated he asked about BP parameters for new BP cuff. Pt just saw PCP on 12/16/24 and reviewed home BP monitoring. Sonam calling as FYI in case pt calls in regarding either of these. documented in this encounter Plan of Treatment Not on file documented as of this encounter Visit Diagnoses Not on filedocumented in this encounter Care Teams Sizer Machine Relationship Specialty Start Date End Date Connie Storm ANP [address] [place] [phone] PCP - General Family Medicine 01/07/22 documented as of this encounter
--- OUTSIDE RECORDS SUMMARY | 2024-12-21 11:06 | XMS_ITS | Encounter Summary ---
Author Organization [email or web address] Address [address] [facility] 7t [place] [address] Care Team Providers Care Double Spindle Shaper Operator Name Role Phone Connie Storm Primary Care Provider Reason for Visit * Reason Comments Med Change Request Encounter Details Date Type Department Care Team ([facility] st Contact Info) Description 10/22/2024 Refill [facility] [address] [place], [place] [phone] Joan Wood NP [address] [place] [address] Moderate persistent asthma with acute exacerbation Social History Tobacco Use Types Packs/Day Years Used Date Smoking Tobacco: Never Smokeless Tobacco: Never Sex and Gender Information Value Date Recorded Sex Assigned at Male 06/02/2022 10:18 AM EDT Legal Sex Male 10:18 AM EDT Gender Identity Male 06/02/2022 10:18 AM EDT Sexual Orientation Straight 06/02/2022 10 :18 AM EDT documented as of this encounter Plan of Treatment Not on file documented as of this encounter Visit Diagnoses Diagnosis Moderate persistent asthma with acute exacerbation documented in this encounter Care Teams Double Spindle Shaper Operator Relationship Specialty Start Date End Date Connie Storm ANP [address] [place], [place] [phone] PCP - General Family Medicine 01/07/22 documented as of this encounter
--- OUTSIDE RECORDS SUMMARY | 2024-12-21 11:06 | XMS_ITS | Encounter Summary ---
Author Organization [employer] Address [address] [place] [address] [address] [place] [address] Care Team Providers Care Paper Cone Maker Name Role Phone Bronwyn Child BENITO Primary Care Provider [phone] Encounter Details Date Type Department Care Team (Late st Contact Info) Description 09/21/2024 Orders Only [facility] MEDICINE [address] [place] [address] Lucie Thomas MD [address] [place] [address] Social History Tobacco Use Types Packs/Day Years [...] on file documented as of this encounter Procedures Procedure Name Priority Date/Time Associated Diagnosis Comments US ABDOMEN COMPLETE Routine 10/13/2024 1 1:06 AM EDT documented in this encounter Results * US Abdomen Complete (10/13/2024 11:06 AM EDT) Anatomical Region Laterality Modality Abdomen Ultrasound 10/13/2024 11:0 6 AM EDT Narrative 10/17/2024 10:25 AM EDT ? [facility] [facility] ?[address] ?[place] [address] ? Ultrasound Report ? Signed ? Patient: Denver,Kwame A ?MR#: [id number] ?? 92 ? : 2000 ?Acct:[id number] ? Age/Sex: 24 / M ?ADM Date: 10/13/24 ? Loc: HO.US ? Attending Dr: Brandon White MD ? Ordering Physician: Brandon White MD ?? Date of Service: 10/13/24 ?? Procedure(s): US abdomen complete ?? Accession Number(s): [id number] ? cc: BRONWYN CHILD NP; Brandon White [...] DD/ 1106 ? TD/TT: 10/13/24 1106 ? Professional Services Manager: ? Procedure Note Clark Zuniga - 10/17/[address] [address] Ultrasound Report Signed Patient: Kwame Breaux [facility]R#: [id number] : 2000Acct:[id number] Age/Sex: 24 / MADM Date: 10/13/24 Loc: HO.US Attending Dr: Brandon White MD Ordering Physician: Brandon White MD Date of Service: 10/13/24 Procedure(s): US abdomen complete Accession Number(s): [id number] cc: BRONWYN CHILD COMMERCIAL MANAGER; Brandon White MD CLINICAL HISTORY: Abnormal LFTS [...] 10/17/24 1025 DD/ 1106 TD/TT: 10/13/24 1106 Professional Services Manager: [facility] External Provider IMG US PROCEDURES Final Result documented in this encounter Visit Diagnoses Not on filedocumented in this encounter Care Teams Paper Cone Maker Relationship Specialty Start Date End Date Bronwyn Child ANP [address] [place] [id number] PCP - General Family Medicine 01/07/22 documented as of this encounter
[2024-12-21 11:43] LABS: Alanine Aminotransferase 18 U/L (0-40); Albumin Level 3.6 g/dL (3.5-5.0); Alkaline Phosphatase 66 U/L (39-117); Aspartate Amino Transferase 26 U/L (5-37); Bilirubin Direct 0.1 mg/dL (0.0-0.5); Bilirubin Total 0.4 mg/dL (0.0-1.0); Total Protein 5.7 g/dL (6.5-8.0)
[2024-12-21 12:21] LABS: HIV AB/AG Nonreactive (Nonreactive); HIV Num 1 0.27 S/CO (0.00-0.99); Hepatitis A Antibody IgM 0.21 Index (0-0.79); ~HepC Num1 0.12 S/CO (0.00-0.79); ~Hepatitis A Antibody IgM Nonreactive (Nonreactive); ~Hepatitis C Antibody Nonreactive (Nonreactive)
[2024-12-21 12:39] LABS: CT PCR NOT DETECTED (Not Detect.); NG PCR NOT DETECTED (Not Detect.)
[2024-12-22 11:23] LABS: RPR Rapid Plasma Reagin NON-REACTIVE (NON-REACTIVE)
== END 2024-12-21 09:46 | disposition home or self-care (01) ==
LOC: HO.HHCL 09:45
PROVIDERS: Visit Provider Nurse Practitioner Primary Care
DX: Z11.3 Encounter for screening for infections with a predominantly sexual mode of transmission (principal); R60.0 Localized edema
CPT/HCPCS: 80076; 86592; 86709; 86803; 87389; 87491; 87591